=== PATIENT | female | born 1960 | race Caucasian/White ===

== ENCOUNTER 2020-09-22 | Emergency (ER) | payer OTHER, SELFPAY ==
--- NOTE | ~2020-09-22 | XR_ITS ---
EXAMINATION: XR CHEST CLINICAL INFORMATION: CVP COMPARISON: None TECHNIQUE: Frontal view of the chest was obtained. FINDINGS: No significant abnormality is noted involving the heart, lungs, mediastinum, bony thorax or soft tissues. Degenerative changes are noted in both shoulders with humeral osteophytes. XR/XR chest 1V IMPRESSION: No acute intrathoracic disease
--- NOTE | 2020-09-22 00:03 | ED.CHESTPAIN ---
HPI - Chest Pain General Chief Complaint: Chest Pain Stated Complaint: LEF SIDED CHEST PAIN/PRESSURE W/ASA & NITRO GIVEN Time Seen by Provider: 09/22/20 00:03 Source: patient Mode of arrival: ambulatory Limitations: no limitations History of Present Illness HPI narrative: patient history of asthma no known coronary artery disease had a good day today just half an hour prior to arrival while at rest noticed left-sided chest pain was coughing little bit prior to that feels hot in the chest was given nitroglycerin sublingual and 324 mg aspirin by EMS without much relief no radiation of pain no diaphoresis no nausea no vomiting 12 lead EKG done by EMT showed no acute ST elevation. Patient never had similar pain in the past no significant family history except for grandfather had SD at age of 60 Related Data Home Medications Medication Instructions Recorded Confirmed calcium carbonate 500 mg (1,250 1 tab PO DAILY 01/27/20 01/27/20 mg)-vitamin D3 200 unit tablet diphenhydramine HCl 25 mg capsule 25 mg PO Q6H PRN 01/27/20 01/27/20 loratadine 10 mg capsule 10 mg PO DAILY 01/27/20 01/27/20 multivitamin 1 tab PO DAILY 01/27/20 01/27/20 naproxen sodium 220 mg tablet 220 mg PO Q12H 01/27/20 01/27/20 Previous Rx's Medication Instructions Recorded albuterol sulfate 90 mcg/actuation 2 puff INHALATION Q4-6H PRN #8.5 g 01/27/20 aerosol inhaler fluticasone 250 mcg-salmeterol 50 1 inh INHALATION BID #60 ea 06/06/20 mcg/dose blistr powdr for inhalation montelukast 10 mg tablet 10 mg PO DAILY #90 tab 07/19/20 Allergies Allergy/AdvReac Type Severity Reaction Status Date / Time venom-wasp [WASP VENOM] Allergy Unknown HIVES, Verified 01/27/20 09:24 SWELLING Review of Systems Review of Systems: Constitutional : No Weight loss, No Fever, No Chills ENT/Mouth : No sore throat, No Rhinorrhea Eyes: No Eye Pain, No Swelling Cardiovascular : + Chest Pain, no palpitations Respiratory : No Cough, No Sputum, no shortness of breath Gastrointestinal : no Nausea, No Vomiting, No Diarrhea, No abdominal Pain, no black stools Genitourinary : No Dysuria, No Urinary Frequency Musculoskeletal : No joint pain, No Myalgias, No Joint Swelling Skin : No Skin Lesions, No rash Neuro : No Weakness, No Numbness, No Dizziness, No Headache Psych : No Anxiety/Panic, No Depression Heme/Lymph: No Bruising, No Lymphadenopathy Endocrine : No Polyuria, No Polydipsia All other systems reviewed and are negative [facility] Past Medical History Medical History Asthma GERD (gastroesophageal reflux disease) Obesity (BMI 30-39.9) Surgical History No pertinent past surgical history Family History Family History Father Lung cancer Hypertension CVD (cardiovascular disease) Mother Stroke Paternal Grandmother Hypothyroid Graves disease Maternal Uncle Colon cancer Paternal Grandfather Myocardial infarction Social History Social History Alcohol intake: current Years Smoked: smokes marijuana Advance Directives: No Advance Directives Information Provided: No Physical Exam Vital Signs: Vital Signs: Last Vital Signs Temp 98.2 F 09/22/20 00:06 Pulse 70 09/22/20 04:14 Resp 16 09/22/20 04:14 BP 115/68 09/22/20 04:14 Pulse Ox 97 09/22/20 04:14 Body Mass Index 33.2 Appearance: Alert. Oriented X3. No acute distress. Eyes: PERRLA, No Nystagmus ENT: Pharynx normal. Oral Mucosa moist Neck: Normal inspection. Neck supple. CVS: Normal heart rate and rhythm. Pulses normal. Respiratory: No respiratory distress. Equal air entry bilateral, no wheezing/rales/rhonchi Abdomen: Soft and nontender. Bowel sounds are present, no mass palpable, no CVA tenderness Skin: Skin warm and dry. Normal skin color. Normal skin turgor. Extremities: No lower extremity edema. No calf tenderness Neuro: Oriented X 3. No motor deficit. No sensory deficit.No cerebellar signs , cranial nerves II-XII intact MDM - Chest Pain MDM Narrative Medical decision making narrative: patient with chest pain with no significant risk factor no acute EKG changes 2 sets of high sensitive troponin negative. Patient relaxed and sleeping at this time without any chest pain patient advised to follow with PCP for further evaluation Lab Data Attestation: I reviewed the patient's lab results. Result diagrams: 09/22/20 00:27 09/22/20 00:27 Labs: Lab Results 09/22/20 09/22/20 09/22/20 Range/Units 00: 00:27 00:27 WBC 7.8 (4.8-10.8) X10*3/uL RBC 4.00 L (4.20-5.50) X10*6/uL Hgb 12.4 (12.0-16.0) g/dl Hct 35.7 L (37-47) % MCV 89.3 (80-98) fL MCH 31.0 (27.0-33.0) pg MCHC 34.7 (31.0-35.0) g/dl RDW 12.4 (11.0-16.0) % Plt Count 345 (160-400) X10*3/uL MPV 9.2 L (9.4-12.3) fL Immature Gran % (Auto) 0.9 H (0.0-0.4) % Neut % (Auto) 59.2 (45-73) % Lymph % (Auto) 29.2 (20-40) % [place] % (Auto) 6.9 (2-11) % Eos % (Auto) 2.8 (0-4) % Baso % (Auto) 1.0 (0-2) % Lymph # (Auto) 2.3 (1.2-4.9) X10*3/uL [place] # (Auto) 0.5 (0.1-1.2) X10*3/uL Eos # (Auto) 0.2 (0.0-0.4) X10*3/uL Baso # (Auto) 0.1 (0.0-0.2) X10*3/uL Abs Immat Gran (auto) 0.07 H (0.00-0.03) X10*3/uL Absolute Neuts (auto) 4.6 (2.0-8.3) X10*3/uL Absolute Nucleated RBC 0.000 (0.0-0.012) X10*3/uL Nucleated RBC % (auto) 0.0 (0.0-0.2) /100WBC PT 9.9 (9.9-13.0) SEC INR 0.9 (0.9-1.1) APTT 26.8 (24.1-38.0) SEC D-Dimer 208 NG/ML Sodium 138 (135-145) mmol/L Potassium 3.9 (3.3-5.1) mmol/L Chloride 107 (96-108) mmol/L Carbon Dioxide 23 (22-29) mmol/L Anion Gap 12 (12-20) BUN 16 (9-16) mg/dL Creatinine 0.83 (0.5-1.4) mg/dL Estim Creat Clear Calc 76.2 Estimated GFR > 60 Random Glucose 100 (60-115) mg/dL Calcium 9.6 (8.4-10.2) mg/dL Troponin I High Sens (<3.5-17.0) ng/L 09/22/20 09/22/20 Range/Units 00:27 04:14 WBC (4.8-10.8) X10*3/uL RBC (4.20-5.50) X10*6/uL Hgb (12.0-16.0) g/dl Hct (37-47) % MCV (80-98) fL MCH (27.0-33.0) pg MCHC (31.0-35.0) g/dl RDW (11.0-16.0) % Plt Count (160-400) X10*3/uL MPV (9.4-12.3) fL Immature Gran % (Auto) (0.0-0.4) % Neut % (Auto) (45-73) % Lymph % (Auto) (20-40) % [place] % (Auto) (2-11) % Eos % (Auto) (0-4) % Baso % (Auto) (0-2) % Lymph # (Auto) (1.2-4.9) X10*3/uL [place] # (Auto) (0.1-1.2) X10*3/uL Eos # (Auto) (0.0-0.4) X10*3/uL Baso # (Auto) (0.0-0.2) X10*3/uL Abs Immat Gran (auto) (0.00-0.03) X10*3/uL Absolute Neuts (auto) (2.0-8.3) X10*3/uL Absolute Nucleated RBC (0.0-0.012) X10*3/uL Nucleated RBC % (auto) (0.0-0.2) /100WBC PT (9.9-13.0) SEC INR (0.9-1.1) APTT (24.1-38.0) SEC D-Dimer NG/ML Sodium (135-145) mmol/L Potassium (3.3-5.1) mmol/L Chloride (96-108) mmol/L Carbon Dioxide (22-29) mmol/L Anion Gap (12-20) BUN (9-16) mg/dL Creatinine (0.5-1.4) mg/dL Estim Creat Clear Calc Estimated GFR Random Glucose (60-115) mg/dL Calcium (8.4-10.2) mg/dL Troponin I High Sens < 3.5 < 3.5 (<3.5-17.0) ng/L ECG Data ECG #1: Attestation: I personally reviewed and interpreted this ECG as follows: Interpretation: normal sinus rhythm normal intervals normal axis flat ST segments inferolateral leads without reciprocal changes no acute ischemia Discharge Plan Discharge Prescriptions: No Action fluticasone propion-salmeterol [Advair Diskus] 250-50 mcg/dose blister with device 1 inh inhalation BID Qty: 60 RF: 11 montelukast [Singulair] 10 mg tablet 10 mg PO DAILY Qty: 90 RF: 3 calcium carbonate-vitamin D3 [Calcium 500 + D] 500 mg(1,250mg) -200 unit tablet 1 tab PO DAILY RF: 0 multivitamin Tablet 1 tab PO DAILY RF: 0 loratadine 10 mg capsule 10 mg PO DAILY RF: 0 diphenhydramine HCl [Benadryl] 25 mg capsule 25 mg PO Q6H PRNRF: 0 naproxen sodium [Aleve] 220 mg tablet 220 mg PO Q12H RF: 0 albuterol sulfate [ProAir HFA] 90 mcg/actuation HFA aerosol inhaler 2 puff inhalation Q4-6H PRN (Reason: bronchospasm) Qty: 8.5 RF: 0
[2020-09-22 00:06] VITALS: BP 155/80; BP 161/81; PULSE 100; PULSE 87; RESP 16; TEMP 36.8; O2SAT 100; O2SAT 97; BMI 33.2
--- NOTE | 2020-09-22 00:09 | ECG_ITS ---
Test Reason : CP Blood Pressure : / mmHG Vent. Rate : 085 BPM Atrial Rate : 085 BPM P-R Int : 140 ms QRS Dur : 088 ms QT Int : 370 ms P-R-T Axes : 069 042 053 degrees QTc Int : 440 ms Normal sinus rhythm Possible Left atrial enlargement Borderline ECG No previous ECGs available Referred By: Jesus Baires Electronically Signed By:ALIZA AQUINO
[2020-09-22 00:34] LABS: Basophils Absolute Auto 0.1 X10*3/uL (0.0-0.2); Eosinophils Absolute Auto 0.2 X10*3/uL (0.0-0.4); Eosinophils Percent Auto 2.8 % (0-4); Hematocrit 35.7 % (37-47); Hemoglobin 12.4 g/dl (12.0-16.0); Imm Gran Abs Auto 0.07 X10*3/uL (0.00-0.03); Imm Gran Pct Auto 0.9 % (0.0-0.4); Lymphocytes Absolute Auto 2.3 X10*3/uL (1.2-4.9); Lymphocytes Percent Auto 29.2 % (20-40); Mean Corpuscular HGB Conc 34.7 g/dl (31.0-35.0); Mean Corpuscular Volume 89.3 fL (80-98); Mean Platelet Volume 9.2 fL (9.4-12.3); Monocytes Absolute Auto 0.5 X10*3/uL (0.1-1.2); Monocytes Percent Auto 6.9 % (2-11); Neutrophils Absolute Auto 4.6 X10*3/uL (2.0-8.3); Neutrophils Percent Auto 59.2 % (45-73); Platelet Count 345 X10*3/uL (160-400); Red Cell Distribution Width 12.4 % (11.0-16.0); White Blood Count 7.8 X10*3/uL (4.8-10.8)
[2020-09-22 00:35] LABS: MANUAL DIFF FLAG NO
[2020-09-22 00:38] VITALS: BP 135/69; PULSE 80; RESP 21; O2SAT 97
[2020-09-22] MEDS: Nitroglycerin 2 % Oint 1 GM Packet 1 INCH TRANSDERMA (00:39)
[2020-09-22 00:40] LABS: INTERNATIONAL NORM RATIO 0.9 (0.9-1.1); Prothrombin Time 9.9 SEC (9.9-13.0)
[2020-09-22 00:43] LABS: D Dimer 208 NG/ML; Partial Thromboplastin Time 26.8 SEC (24.1-38.0)
[2020-09-22 00:56] LABS: Anion Gap 12 (12-20); Blood Urea Nitrogen 16 mg/dL (9-16); Calcium 9.6 mg/dL (8.4-10.2); Carbon Dioxide 23 mmol/L (22-29); Chloride 107 mmol/L (96-108); Creatinine Clr Calc Pharmacy 76.2; Estimated Glomerular Filt Rate > 60; Glucose Random 100 mg/dL (60-115); Potassium 3.9 mmol/L (3.3-5.1); Sodium 138 mmol/L (135-145)
[2020-09-22 01:01] LABS: Troponin-I High Sensitivity < 3.5 ng/L (<3.5-17.0)
--- NOTE | 2020-09-22 02:44 | PC.NURSE ---
pt ambulatory to bathroom with steady gait. pt able to rest and has been sleeping for past 20 minutes. pt awaiting repeat troponin.
[2020-09-22 04:14] VITALS: BP 115/68; PULSE 70; RESP 16; O2SAT 97
[2020-09-22 04:43] LABS: Troponin-I High Sensitivity < 3.5 ng/L (<3.5-17.0)
--- NOTE | 2020-09-22 07:06 | PC.NURSE ---
pt ambulatory to waiting room with steady gait, able to dress herself without difficulty. pt given apple juice while waiting for hospital shuttle.
== END 2020-09-22 06:45 | disposition home or self-care (01) ==
PROVIDERS: Emergency Provider Internal Medicine; PCP Internal Medicine
DX: R07.9 Chest pain, unspecified (principal); J45.909 Unspecified asthma, uncomplicated; Z79.899 Other long term (current) drug therapy
CPT/HCPCS: 36415; 71045; 80048; 84484; 85025; 85379; 85610; 85730; 93005; 99284; 99285

== ENCOUNTER → 2020-11-17 14:05 | Outpatient (BNVA) | payer OTHER, SELFPAY | PROVIDERS: PCP Internal Medicine; Referring Provider Internal Medicine; Visit Provider Internal Medicine Cardiovascular Disease ==

== ENCOUNTER 2021-07-17 07:57 | Outpatient (REF) | payer OTHER, SELFPAY ==
--- NOTE | ~2021-07-17 | MM_ITS ---
EXAMINATION: MM SCREENING DIGITAL BREAST TOMOSYNTHESIS, BILATERAL CLINICAL INFORMATION: Screening. Asymptomatic. The lifetime risk of breast cancer based on the Tyrer-Cuzick Model is 9%. COMPARISON: Mammography: 11/27/2019, 05/02/2018, 04/22/2017 TECHNIQUE: Digital breast tomosynthesis is performed in both the craniocaudal and mediolateral oblique views along with computer-aided detection (CAD). Synthesized 2D images are generated from the tomosynthesis. FINDINGS: There are scattered areas of fibroglandular density (ACR BI-RADS breast composition Category b). There are no significant masses, abnormal calcifications, or other abnormalities. Parenchymal pattern is similar to prior studies. There is no developing density or architectural abnormality. The axilla and skin contours are unremarkable. No significant changes. MM/MM tomosynthesis screening BI IMPRESSION: No mammographic evidence of malignancy. ASSESSMENT: BI-RADS 1: Negative RECOMMENDATION: Routine annual mammography screening. This patient's information was entered into a reminder system with a target due date for their next mammogram.
== END 2021-07-17 07:58 | disposition home or self-care (01) ==
LOC: HO.MAMMO 07:57
PROVIDERS: Visit Provider Internal Medicine
DX: Z12.31 Encounter for screening mammogram for malignant neoplasm of breast (principal)
CPT/HCPCS: 77063; 77067

== ENCOUNTER 2022-03-30 22:46 | Emergency (ER) | payer OTHER, SELFPAY ==
[2022-03-30 22:48] VITALS: BP 170/67; PULSE 104; RESP 20; TEMP 36.3; O2SAT 100; BMI 30.9
--- NOTE | 2022-03-30 22:51 | ECG_ITS ---
Test Reason : CHEST PAIN Blood Pressure : / mmHG Vent. Rate : 105 BPM Atrial Rate : 105 BPM P-R Int : 144 ms QRS Dur : 080 ms QT Int : 332 ms P-R-T Axes : 062 028 048 degrees QTc Int : 438 ms Sinus tachycardia Possible Left atrial enlargement Nonspecific ST abnormality Abnormal ECG When compared with ECG of 22-SEP-2020 00:14, No significant change was found Referred By: Generic ED Physician Electronically Signed By:Onel Alves
--- OUTSIDE RECORDS SUMMARY | 2022-03-30 23:25 | XMS_ITS | Encounter Summary ---
:1960 Author Reason for Visit Congestion congestion, sore throat, cough x 5 days, low grade fever. Would like Covid and Flu test. Assessment and Plan 1. COVID-19 ? rapid flu (A+B) ? rapid SARS CoV 2 Ag, QL IA, respirato ry specimen ? coronavirus (covid-19): care instruct ions 2. Acute upper respiratory infection ? upper respiratory infection (cold): c are instructions Discussion Note: None recorded. Plan of Care Reminders Provider Appointments None recorded. ? ? Lab Rapid Flu (A+B) [facility] ? Rapid SARS CoV 2 Ag, QL IA, 02/16/2022 21 [facility] Res[facility] Specimen Referral None recorded. ? ? Procedures None recorded. ? ? Surgeries None recorded. ? ? Imaging None recorded. ? ? Medications Name Start Date ? ? fluticasone 250 mcg-salmeterol 50 mcg/dose blistr powd r for inhalation ? loratadine ? montelukast 10 mg tablet ? Medications Administered None recorded. Vitals Height Weight BMI Blood Pressure 5 ft 4 in 180 lbs 30.9 kg/m2 147/84 mm[Hg] Results Lab Results Date Name Specimen Result Interpretation Description Value Range Status Address ? 02/16/2022 Rapid SARS ? Result positive ? ? [facility] CoV 2 Ag, QL COVID [address] [place], [place], Antigen [place] Respiratory Specimen 02/16/2022 Rapid Flu ? Result negative ? ? [facility]: (A+B) Influenza a [address] [place], [place] ? ? ? Result negative ? ? [facility] Influenza B [address] [facility] [place], [place] Allergies Code Code System Name Reaction Severity Onset NKDA ? ? ? Problems Name Status Onset Date Source ? Asthma Active 02/16/2022 ? Procedures None recorded. Vaccine List None recorded. Social History Tobacco Smoking Status Never Smoker Do you or have you ever used any other forms of tobacco or n icotine? N Have you recently traveled abroad? N Do you use any illicit or recreational drugs? N What is your heat source? Electric Have you had direct contact, or contact during intimacy, wit h N monkeypox rash, scabs, or body fluids from a person with mon keypox? What is your water source? [place] Family History Relation Problem Onset Age of Age Notes Father No current problems or (No Information) N/A ( No Notes) disability Mother No current problems or (No Information) N/A ( No Notes) disability Functional Status Unknown. Past Encounters Encounter Date Diagnosis Provider 02/16/2022 Covid-19; Acute Upper Respiratory Mame Shipley PA: [address] [facility], [place] [address], Ph. History of Present Illness ? Congestion Reported By: Patient Notes: Lynda is a 61 yo F with PMH asthma here for evaluation of congestion, sore throat, cough and low g rade fevers onset 5 days. No SOB, CP, wheezing. Notes she was expo sed to sick persons on but none of them have tested. Asking for flu/covid testing here today. Review of Systems ? UC General Adult ROS Reported By: Patient Constitutional: Constitutional: no night swe ats, no significant weight loss, fever ENMT: Ears: no difficulty hearing, no ear pain. Nose: NO loss of taste/smell, nose/sinus prob lems, nasal congestion/discharge. Mouth/Throat: no mouth ulcer s, No hoarseness, sore throat Cardiovascular: Cardiovascular: no chest sabine n, no palpitations, no arm pain on exertion, no shortness of br eath when walking, no shortness of breath when lying down Respiratory: Respiratory: no wheezing, no shortness of breath, no coughing up blood, no congestion in the chest, Not coughing up sputum, cough productive Musculoskeletal: Musculoskeletal: no muscle a ches, no muscle weakness, no arthralgias/joint pain, no b ack pain, no swelling in the extremities Physical Exam ? General Adult Exam Both Reported By: Patient Constitutional: General Appearance: healthy- appearing, well-nourished, well-developed Eyes: Lids and Conjunctivae: non-i njected, no discharge, no pallor. Pupils: PERRLA. Corneas: christophe ssly intact. EOM: extraocular movement intact ENMT: Ears: no lesions on external ear, EACs clear, TMs clear. Hearing: normal. Nose: no le sions on external nose, nares patent, no septal deviation, no sinus tenderness, nasal discharge--rhinorrhea. Oroph arynx: moist mucous membranes, no exudates, tonsils not enlarg ed, erythema Neck: Neck: supple, non tender Lungs: Respiratory effort: no dyspn ea, nonlabored. Percussion: normal resonance, no dullness. Ausc ultation: breath sounds normal Cardiovascular System: Apical Impulse: not displace d. Heart Auscultation: regular rate and rhythm, normal S1, normal S2, no murmurs, no rubs, no gallops. Neck vessels: no ca rotid bruits. Peripheral pulses normal throughout Neurologic: Gait: normal gait. Cranial N erves: grossly intact, no facial droop, eyebrow raise symmetr ical. Sensation: grossly intact Skin: Inspection and palpation: no rash
--- OUTSIDE RECORDS SUMMARY | 2022-03-30 23:25 | XMS_ITS ---
:1960 Author Care Team Providers Name Role Phone Tomasz Mame Primary Care Provider Unavailable Allergies Code Code System Name Reaction Severity Status Onset NKDA ? Medications Name Status Start Date Stop Date ? ? fluticasone 250 mcg-salmeterol 50 mcg/dose blistr powdr for Acti ve ? Not available inhalation loratadine Active ? Not available montelukast 10 mg tablet Active ? Not miki ilable Problems Name Status Onset Date Source ? Asthma Active 02/16/2022 ? Procedures None recorded. Results Lab Results Date Name Specimen Result Interpretation Description Value Range Status Address ? 02/16/2022 Rapid SARS ? Result positive ? ? [facility] CoV 2 Ag, QL COVID [address] [facility] [place], [place], Antigen [place] Respiratory Specimen 02/16/2022 Rapid Flu ? Result negative ? ? [facility]: (A+B) Influenza a [address] [place] ? ? ? Result negative ? ? [facility]: Influenza B [address] [place] [address] Past Encounters Encounter Date Diagnosis Provider 02/16/2022 Covid-19; Acute Upper Respiratory Mame Shipley, PA: [address] [place] [address], Ph. Social History Tobacco Smoking Status Never Smoker Vaccine List None recorded. Plan of Care Reminders Provider Appointments None recorded. ? ? Lab None recorded. ? ? Referral None recorded. ? ? Procedures None recorded. ? ? Surgeries None recorded. ? ? Imaging None recorded. ? ? Vitals Height Weight BMI Blood Pressure 5 ft 4 in 180 lbs 30.9 kg/m2 147/84 mm[Hg]
--- NOTE | 2022-03-30 23:58 | ED_ITS ---
HPI - Chest Pain General Chief Complaint: Chest Pain Stated Complaint: faint, Chest pain Time Seen by Provider: 03/30/22 23:17 Source: patient Mode of arrival: ambulatory Limitations: no limitations History of Present Illness HPI narrative: Patient comes to the emergency room complaining of approximately 1-1/2 hours of chest pain radiating towards the right side of the neck. Patient also complaining of palpitations. Patient denies shortness of breath. Denies nausea vomiting diarrhea. Patient states that for the last week she has occasionally had lightheadedness with standing Related Data Home Medications Medication Instructions Recorded Confirmed calcium carbonate 500 mg-vitamin 1 tab PO DAILY 01/27/20 01/31/22 D3 5 mcg (200 unit) tablet (Calcium 500 + D) loratadine 10 mg capsule 10 mg PO DAILY 01/27/20 01/31/22 multivitamin 1 tab PO DAILY 01/27/20 01/31/22 naproxen sodium 220 mg tablet 220 mg PO Q12H 01/27/20 01/31/22 (Aleve) Previous Rx's Medication Instructions Recorded fluticasone 250 mcg-salmeterol 50 1 ea PO BID #180 ea 05/15/21 mcg/dose blistr powdr for inhalation montelukast 10 mg tablet 10 mg PO DAILY #90 tabs 06/27/21 (Singulair) albuterol sulfate 90 mcg/actuation 2 puff PO Q4-6H PRN for muscle 03/28/22 aerosol inhaler spasm #8.5 grams Allergies Allergy/AdvReac Type Severity Reaction Status Date / Time venom-wasp [WASP VENOM] Allergy Unknown HIVES, Verified 01/31/22 11:32 SWELLING Review of Systems Review of Systems: Constitutional : No Weight loss, No Fever, No Chills, No Night Sweats, No Fatigue, No Malaise ENT/Mouth : No Hearing loss, No Ear Pain, No Nasal Congestion, No Sinus Pain, No Hoarseness, No sore throat, No Rhinorrhea, No Swallowing Difficulty Eyes: No Eye Pain, No Swelling, No Redness, No Foreign Body, No Discharge, No Vision Changes Cardiovascular : Complaining of chest pressure bilaterally, radiating to the right side of the chest, no orthopnea, complaining of lightheadedness with standing Respiratory : No Cough, No Sputum, No Wheezing, No Smoke Exposure, No Dyspnea Gastrointestinal : No Nausea, No Vomiting, No Diarrhea, No Constipation, No abdominal Pain, No Hematochezia, No Melena Genitourinary : no irregular bleeding, No Dysuria, No Urinary Frequency, No Hematuria, No Urinary Incontinence, No Urgency, No Flank Pain, No Urinary Flow Changes, No Hesitancy Musculoskeletal : No joint pain, No Myalgias, No Joint Swelling Skin : No Skin Lesions, No rash Neuro : No Weakness, No Numbness, No Paresthesias, No Loss of Consciousness, No Dizziness, No Headache Psych : No Anxiety/Panic, No Depression, No SI/HI/AH/VH, No Social Issues, Heme/Lymph: No Bruising, No Bleeding,No Lymphadenopathy Endocrine : No Polyuria, No Polydipsia, No Temperature Intolerance [facility] Past Medical History Medical History Asthma GERD (gastroesophageal reflux disease) Obesity (BMI 30-39.9) Surgical History No pertinent past surgical history Family History Family History (Updated 01/31/22 @ 11:49 by Fadi Barcenas MD) Father Lung cancer Hypertension CVD (cardiovascular disease) Mother Stroke Colon cancer Paternal Grandmother Hypothyroid Graves disease Maternal Uncle Colon cancer Paternal Grandfather Myocardial infarction Sister Graves disease Brother Stroke Social History Social History (Updated 01/31/22 @ 11:50 by Fadi Barcenas MD) Housing: House Alcohol intake: current Alcohol intake frequency: a few times a week Patient Tobacco Use Status: Former Tobacco user Tobacco use type: Cigarette Years Smoked: smokes marijuana, quit 2009 smoking cigarette Smoked in Last 30 Days: No e-Cigarette/Vaping Use: Never Used Second Hand Smoke Exposure: No Use of substances other than those prescribed or required for medical reasons: Yes Substance Use Type: Marijuana Advance Directives: No Advance Directives Information Provided: Yes Patient : No Current occupational status: employed Cognitive needs: No Hearing needs: No Vision needs: Yes Physical Exam Vital Signs: Vital Signs: Last Vital Signs Temp 97.9 F 03/31/22 00:49 Pulse 86 03/31/22 00:49 Resp 15 03/31/22 00:49 BP 134/63 03/31/22 00:49 Pulse Ox 97 03/31/22 00:49 O2 Del Method 03/31/22 00:49 BMI result Body Mass Index 30.9 Const: Other: Appearance: Alert. Oriented X3. No acute distress. Eyes: Pupils equal, round and reactive to light. ENT: Pharynx normal. Neck: Normal inspection. Neck supple. No lymph nodes noted. No crepitus CVS: Normal heart rate and rhythm. Pulses normal. Normal S1 and S2 Respiratory: No respiratory distress. Breath sounds normal. No Wheezing. No rales Abdomen: Soft and nontender. No rigidity. No distention. Skin: Skin warm and dry. Normal skin color. Normal skin turgor. Extremities: No lower extremity edema. No Lacerations. No Rash Neuro: Oriented X 3. No motor deficit. No sensory deficit. Moving all extremities. No slurred speech. CN 2 through 12 grossly intact Psych: calm, cooperative, anxious Course Course Course Narrative: Patient seems a bit anxious. No reproducible chest pain. Chest x-ray does not show any acute abnormalities. Troponin 1. Negative. EKG: My interpretation sinus tachycardia, 100 105, no ST segment depression or elevation, no T-wave inversion, QTC 438 Repeat troponin 2. Will be done at 3 in the morning. Sign-out given to Dr. Anthony Medical Decision Making Differential Diagnosis Differential Diagnoses: The differential diagnosis associated with the presentation includes (ACS, anxiety, costochondritis) Lab Data MDM Lab Attestation statement: I reviewed the patient's lab results. 03/30/22 23:55 03/30/22 23:55 Labs: Lab Results 03/30/22 03/30/22 03/30/22 Range/Units 23:55 23:55 23:55 WBC 9.6 (4.8-10.8) X10*3/uL RBC 3.95 L (4.20-5.50) X10*6/uL Hgb 11.9 L (12.0-16.0) g/dl Hct 35.3 L (37.0-47.0) % MCV 89.4 (80.0-98.0) fL MCH 30.1 (27.0-33.0) pg MCHC 33.7 (31.0-35.0) g/dl RDW 12.6 (11.0-16.0) % Plt Count 378 (160-400) X10*3/uL MPV 9.2 L (9.4-12.3) fL Immature Gran % (Auto) 0.4 (0.0-0.4) % Neut % (Auto) 72.2 (45-73) % Lymph % (Auto) 18.3 L (20-40) % [place] % (Auto) 6.7 (2-11) % Eos % (Auto) 1.8 (0-4) % Baso % (Auto) 0.6 (0-2) % Lymph # (Auto) 1.8 (1.2-4.9) X10*3/uL [place] # (Auto) 0.6 (0.1-1.2) X10*3/uL Eos # (Auto) 0.2 (0.0-0.4) X10*3/uL Baso # (Auto) 0.1 (0.0-0.2) X10*3/uL Abs Immat Gran (auto) 0.04 H (0.00-0.03) X10*3/uL Absolute Neuts (auto) 6.9 (2.0-8.3) x10*3/uL Absolute Nucleated RBC 0.000 (0.0-0.012) X10*3/uL Nucleated RBC % (auto) 0.0 (0.0-0.2) /100WBC Sodium 138 (135-145) mmol/L Potassium 4.0 (3.3-5.1) mmol/L Chloride 107 (96-108) mmol/L Carbon Dioxide 23 (22-29) mmol/L Anion Gap 12 (12-20) BUN 22 H (9-16) mg/dL Creatinine 0.84 (0.5-1.4) mg/dL Estim Creat Clear Calc 74.5 Estimated GFR > 60 Random Glucose 121 H (60-115) mg/dL Calcium 9.7 (8.4-10.2) mg/dL Total Bilirubin 0.8 (0.0-1.0) mg/dL AST 20 (5-31) U/L ALT 20 (0-31) U/L Alkaline Phosphatase 71 (39-117) U/L Troponin I High Sens (<3.5-17.0) ng/L Total Protein 6.3 L (6.5-8.0) g/dL Albumin 3.8 (3.5-5.0) g/dL COVID-19 (PIO) Negative (Negative) COVID-19 Clin Com See Note 03/30/22 Range/Units 23:55 WBC (4.8-10.8) X10*3/uL RBC (4.20-5.50) X10*6/uL Hgb (12.0-16.0) g/dl Hct (37.0-47.0) % MCV (80.0-98.0) fL MCH (27.0-33.0) pg MCHC (31.0-35.0) g/dl RDW (11.0-16.0) % Plt Count (160-400) X10*3/uL MPV (9.4-12.3) fL Immature Gran % (Auto) (0.0-0.4) % Neut % (Auto) (45-73) % Lymph % (Auto) (20-40) % [place]wall % (Auto) (2-11) % Eos % (Auto) (0-4) % Baso % (Auto) (0-2) % Lymph # (Auto) (1.2-4.9) X10*3/uL [place] # (Auto) (0.1-1.2) X10*3/uL Eos # (Auto) (0.0-0.4) X10*3/uL Baso # (Auto) (0.0-0.2) X10*3/uL Abs Immat Gran (auto) (0.00-0.03) X10*3/uL Absolute Neuts (auto) (2.0-8.3) x10*3/uL Absolute Nucleated RBC (0.0-0.012) X10*3/uL Nucleated RBC % (auto) (0.0-0.2) /100WBC Sodium (135-145) mmol/L Potassium (3.3-5.1) mmol/L Chloride (96-108) mmol/L Carbon Dioxide (22-29) mmol/L Anion Gap (12-20) BUN (9-16) mg/dL Creatinine (0.5-1.4) mg/dL Estim Creat Clear Calc Estimated GFR Random Glucose (60-115) mg/dL Calcium (8.4-10.2) mg/dL Total Bilirubin (0.0-1.0) mg/dL AST (5-31) U/L ALT (0-31) U/L Alkaline Phosphatase (39-117) U/L Troponin I High Sens < 3.5 (<3.5-17.0) ng/L Total Protein (6.5-8.0) g/dL Albumin (3.5-5.0) g/dL COVID-19 (PIO) (Negative) COVID-19 Clin Com Discharge Plan Discharge Clinical Impression: Chest pain Patient Disposition: Still a Patient Instructions: Chest Pain (ED) Additional Instructions: Please follow-up with your primary care physician tomorrow. If you have any worsening or new symptoms, please return to the emergency room or call 911 Prescriptions: No Action fluticasone propion-salmeterol 250-50 mcg/dose blister with device 1 ea PO BID Qty: 180 3RF montelukast [Singulair] 10 mg tablet 10 mg PO DAILY Qty: 90 3RF albuterol sulfate 90 mcg/actuation HFA aerosol inhaler 2 puff PO Q4-6H PRN (Reason: for muscle spasm) Qty: 8.5 0RF calcium carbonate-vitamin D3 [Calcium 500 + D] 500 mg(1,250mg) -200 unit tablet 1 tab PO DAILY multivitamin Tablet 1 tab PO DAILY loratadine 10 mg capsule 10 mg PO DAILY naproxen sodium [Aleve] 220 mg tablet 220 mg PO Q12H
[2022-03-31] LABS: MANUAL DIFF FLAG NO
[2022-03-31 00:03] LABS: Basophils Absolute Auto 0.1 X10*3/uL (0.0-0.2); Basophils Percent Auto 0.6 % (0-2); Eosinophils Absolute Auto 0.2 X10*3/uL (0.0-0.4); Eosinophils Percent Auto 1.8 % (0-4); Hematocrit 35.3 % (37.0-47.0); Hemoglobin 11.9 g/dl (12.0-16.0); Imm Gran Abs Auto 0.04 X10*3/uL (0.00-0.03); Imm Gran Pct Auto 0.4 % (0.0-0.4); Lymphocytes Absolute Auto 1.8 X10*3/uL (1.2-4.9); Lymphocytes Percent Auto 18.3 % (20-40); Mean Corpuscular HGB Conc 33.7 g/dl (31.0-35.0); Mean Corpuscular Hemoglobin 30.1 pg (27.0-33.0); Mean Corpuscular Volume 89.4 fL (80.0-98.0); Mean Platelet Volume 9.2 fL (9.4-12.3); Monocytes Absolute Auto 0.6 X10*3/uL (0.1-1.2); Monocytes Percent Auto 6.7 % (2-11); Neutrophils Absolute Auto 6.9 x10*3/uL (2.0-8.3); Neutrophils Percent Auto 72.2 % (45-73); Platelet Count 378 X10*3/uL (160-400); Red Blood Count 3.95 X10*6/uL (4.20-5.50); Red Cell Distribution Width 12.6 % (11.0-16.0); White Blood Count 9.6 X10*3/uL (4.8-10.8)
[2022-03-31 00:19] LABS: COVID-19 Test Negative (Negative); IDNOW Serial# 16C4AD1C
[2022-03-31 00:21] VITALS: BP 147/61; PULSE 91
[2022-03-31 00:22] VITALS: BP 165/76; PULSE 94
[2022-03-31 00:24] VITALS: BP 182/76; PULSE 94
[2022-03-31 00:34] LABS: Alanine Aminotransferase 20 U/L (0-31); Albumin Level 3.8 g/dL (3.5-5.0); Alkaline Phosphatase 71 U/L (39-117); Anion Gap 12 (12-20); Aspartate Amino Transferase 20 U/L (5-31); Bilirubin Total 0.8 mg/dL (0.0-1.0); Blood Urea Nitrogen 22 mg/dL (9-16); Calcium 9.7 mg/dL (8.4-10.2); Carbon Dioxide 23 mmol/L (22-29); Chloride 107 mmol/L (96-108); Creatinine Clr Calc Pharmacy 74.5; Estimated Glomerular Filt Rate > 60; Glucose Random 121 mg/dL (60-115); Sodium 138 mmol/L (135-145); Total Protein 6.3 g/dL (6.5-8.0)
[2022-03-31 00:49] VITALS: BP 134/63; PULSE 86; RESP 15; TEMP 36.6; O2SAT 97
[2022-03-31 01:01] LABS: Troponin-I High Sensitivity < 3.5 ng/L (<3.5-17.0)
--- NOTE | 2022-03-31 02:03 | PC.NURSE ---
Pt. resting in bed with daughter at bedside. Orthostatics were negative. Will repeat troponin at 3am.
[2022-03-31 03:50] LABS: Troponin-I High Sensitivity < 3.5 ng/L (<3.5-17.0)
[2022-03-31 04:20] VITALS: BP 120/65; PULSE 72; RESP 14; TEMP 36.4; O2SAT 95
[2022-03-31 05:24] VITALS: PULSE 75
== END 2022-03-31 06:47 | disposition home or self-care (01) ==
PROVIDERS: Emergency Provider Emergency Medicine; PCP Internal Medicine
DX: R07.89 Other chest pain (principal); M54.2 Cervicalgia; F17.210 Nicotine dependence, cigarettes, uncomplicated; Z20.828 Contact with and (suspected) exposure to other viral communicable diseases; Z20.822 Contact with and (suspected) exposure to COVID-19; Z79.899 Other long term (current) drug therapy; Z71.6 Tobacco abuse counseling
CPT/HCPCS: 36415; 80053; 84484; 85025; 87635; 93005; 99283; 99285

== ENCOUNTER 2022-07-23 07:58 | Outpatient (REF) | payer OTHER, SELFPAY ==
--- NOTE | ~2022-07-23 | MM_ITS ---
EXAMINATION: MM SCREENING DIGITAL BREAST TOMOSYNTHESIS, BILATERAL CLINICAL INFORMATION: Screening. Asymptomatic. The lifetime risk of breast cancer based on the Tyrer-Cuzick Model is 9%. COMPARISON: Mammography: 07/17/2021, 11/27/2019, 05/02/2018 TECHNIQUE: Digital breast tomosynthesis is performed in both the craniocaudal and mediolateral oblique views along with computer-aided detection (CAD). Synthesized 2D images are generated from the tomosynthesis. FINDINGS: There are scattered areas of fibroglandular density (ACR BI-RADS breast composition Category b). There are no significant masses, abnormal calcifications, or other abnormalities. No architectural abnormality or developing density or significant change from prior studies. The axilla and skin contours are unremarkable. MM/MM tomosynthesis screening BI IMPRESSION: No mammographic evidence of malignancy. ASSESSMENT: BI-RADS 1: Negative RECOMMENDATION: Routine annual mammography screening. This patient's information was entered into a reminder system with a target due date for their next mammogram.
== END 2022-07-23 07:59 | disposition home or self-care (01) ==
LOC: HO.MAMMO 07:58
PROVIDERS: Visit Provider Internal Medicine
DX: Z12.31 Encounter for screening mammogram for malignant neoplasm of breast (principal)
CPT/HCPCS: 77063; 77067

== ENCOUNTER 2023-02-01 08:33 | Outpatient (AMB) | payer OTHER, SELFPAY ==
[2023-02-01 08:36] VITALS: BP 140/82; PULSE 74; O2SAT 98; BMI 31.9
--- NOTE | 2023-02-01 08:36 | A.OFFPC_ITS ---
Vital Signs 02/01/23 08:36 Height 5 ft 3 in Weight 180 lb BMI 31.9 BP 140/82 H Blood Pressure Location Lt brachial Position Sitting Pulse 74 Pulse Source Pulse Oximeter Pulse Oximetry (%) 98 Oxygen Delivery Method Room Air Intake Visit Reasons: physical Allergies venom-wasp [WASP VENOM] Allergy (Unknown, Verified 02/01/23 08:36) HIVES, SWELLING Medication List - Last Reconciled 02/01/23 by Fadi Barcenas MD albuterol sulfate 90 mcg/actuation 2 puffs PO Q4-6H PRN calcium carbonate-vitamin D3 500 mg-5 mcg (200 unit) (Calcium 500 + D) 1 tab PO DAILY fluticasone propion-salmeterol 250-50 mcg/dose 1 ea PO BID loratadine 10 mg PO DAILY montelukast (Singulair) 10 mg PO DAILY multivitamin 1 tab PO DAILY Tobacco use date assessed: 02/01/23 Dental Screening Dental Screen Date: 02/01/23 Did you have a dental visit in the last 12 months?: No Did you have a dental problem in the last 6 months where you did not have access to dental care?: No Was dental information given to patient?: Patient has dentist HPI physical HPI Details 62-year-old obese female with GERD and a sthma coming in for physical exam. Last seen in January 2022. Patient's colonoscopy is up-to-date November 2024 years and mammogram. Patient had chest pains and palpitations in March 2022. Workup was negative. [facility] Medical History Asthma GERD (gastroesophageal reflux disease) Obesity (BMI 30-39.9) Surgical History No pertinent past surgical history Family History (Updated 02/01/23 @ 08:38 by Trudy Carrasco CMA) Father Lung cancer Hypertension CVD (cardiovascular disease) Mother Stroke Colon cancer Paternal Grandmother Hypothyroid Graves disease Maternal Uncle Colon cancer Paternal Grandfather Myocardial infarction Sister Graves disease Brother Stroke Social History (Updated 02/01/23 @ 09:04 by Fadi Barcenas MD) Housing: House Alcohol intake: current Alcohol intake frequency: a few times a week Patient Tobacco Use Status: Former Tobacco user Tobacco use type: Cigarette Years Smoked: smokes marijuana, quit 2009 smoking cigarette e-Cigarette/Vaping Use: Never Used Second Hand Smoke Exposure: No Substance Use Type: Marijuana Current occupational status: employed Cognitive needs: No Hearing needs: No Vision needs: Yes Questionnaire PHQ-9 Over the last 2 weeks, how often have you been bothered by any of the following problems? 1. Little interest or pleasure in doing things: not at all 2. Feeling down, depressed, or hopeless: not at all 3. Trouble falling or staying asleep, or sleeping too much: not at all 4. Feeling tired or having little energy: not at all 5. Poor appetite or overeating: not at all 6. Feeling bad about yourself - or that you are a failure or have let yourself or your family down: not at all 7. Trouble concentrating on things, such as reading the newspaper or watching television: not at all 8. Moving or speaking so slowly that other people could have noticed. Or the opposite - being so fidgety or restless that you have been moving around a lot more than usual: not at all 9. Thoughts that you would be better off or of hurting yourself in some way: not at all Total score: 0 Depression Screening Interpretation: Negative Depression Screening Done: Yes Source: Developed by Drs. Alejandro Posey, Yen Allison, Glynn Chen and colleagues, with an educational loyd from [employer]. Thrive Questionnaire Date Thrive assessed: 02/01/23 I am a: Patient What is your living situation today?: I have a steady place to live Within the past 12 months, did the food you bought not last and you didn't have the money to get more?: Never true Within the past 12 months, did you worry whether your food would run out before you got money to buy more?: Never true Do you have trouble paying for medicines?: No Do you have trouble getting transportation to medical appointments?: No Do you have trouble paying your heating and electricity bill?: No Do you have trouble taking care of your child, family member or friend?: No Do you have trouble with day-to-day activities such as bathing, preparing meals, shopping, managing finances, etc.?: No Are you currently unemployed and looking for a job?: No Are you interested in more education?: No Currently or been in a relationship where the following occur: no concerns reported AUDIT C Alcohol Use Questionnaire (AUDIT-C) 1. How often do you have a drink containing alcohol?: 2-3 times a week 2. How many drinks containing alcohol do you have on a typical day when you are drinking?: 1 or 2 3. How often do you have six or more drinks on one occasion?: Never Total Score: 3 MIGUEL-7 AMB Questionnaire MIGUEL-7 Date MIGUEL - 7 assessed: 02/01/23 Feeling nervous, anxious, or on edge: 1 = Several days Not being able to stop or control worryin = Not at all Worrying too much about different things: 0 = Not at all Trouble relaxin = Not at all Being so restless that it is hard to sit still: 0 = Not at all Becoming easily annoyed or irritable: 0 = Not at all Feeling afraid as if something awful might happen: 0 = Not at all Total MIGUEL-7 score (0-4 normal; 5-9 mild; 10-14 moderate; 15-21 severe): 1 Source: Developed by Drs. Alejandro Posey, Yen Allison, Glynn Chen and colleagues, with an educational loyd from [employer]. Review of Systems Const Denies poor appetite and Denies weakness Eyes Denies no additional complaints ENT Reports Normal hearing present, Denies dizziness, Denies nasal congestion, Denies tinnitus and Denies sore throat Card Denies chest pain, Denies syncope, Denies rapid heart rate and Denies dyspnea Resp Denies cough and Denies dyspnea GI Denies change in stool character, Reports constipation, Denies diarrhea, Denies nausea and Denies vomiting Denies urinary frequency, Denies difficulty voiding and Denies dysuria Neuro Reports Normal hearing present, Denies confusion, Denies dizziness, Denies syncope and Denies weakness Psych Denies confusion Physical exam (Primary Care) Vital Signs: Last Vital Signs Pulse 74 02/01/23 08:36 BP 140/82 H 02/01/23 08:36 Pulse Ox 98 02/01/23 08:36 Oxygen Delivery Method Room Air 02/01/23 08:36 BMI result Body Mass Index 31.9 Tobacco/Smoking Status: Tobacco use Status Tobacco use date assessed 02/01/23 02/01/23 08:37 Patient Tobacco Use Status Former Tobacco user 02/01/23 08:37 Tobacco use type Cigarette 02/01/23 08:37 e-Cigarette/Vaping Use Never Used 02/01/23 08:37 PHQ-9: PHQ-9 Score PHQ-9: Total score 0 02/01/23 08:50 Depression Screening Interpretation: Negative Thrive Assessment: Date of Thrive Assessment Date Thrive assessed 02/01/23 02/01/23 08:39 Currently or been in a relationship where the following occur: no concerns reported Const General: No confusion Orientation/consciousness: No confusion HENMT Head: Yes normocephalic Ears: external ears normal and TM's normal bilaterally Face and sinus: Yes normal facial exam Mouth: moist mucous membranes Throat: Yes tonsils normal Eyes Conjunctivae: conjunctivae normal Pupils: Equal, round and reactive pupils present and Pupil accommodation reflex normal Direct Ophthalmoscopy: normal light reflex Neck Neck: No lymphadenopathy Thyroid: Thyroid normal Chest Chest palpation & inspection: normal inspection of the chest Resp Effort & Inspection: normal respiratory effort and no audible wheezes Auscultation: clear to auscultation bilaterally, no crackles, no wheezes and lung sounds not diminished Cardio Rate: regular rate Rhythm: regular rhythm Peripheral pulses: radial pulses present and dorsalis pedis present GI Other: guaiac stools negative Palpation (GI): no masses Auscultation: normal bowel sounds and normoactive bowel sounds Rectal Exam - Female: deferred Skin General skin exam: no rashes or lesions noted Rashes: no rashes Neuro General: No confusion Cranial nerves: Yes Equal, round and reactive pupils present and Yes Normal hearing present Cognition (Neuro): normal cognition Gait exam (Neuro): Normal gait present Motor exam (neuro): 5/5 motor strength present throughout Deep tendon reflexes (DTR's): Right brachioradialis reflex intensity grade: 2+, Left brachioradialis reflex intensity grade: 2+, Right patellar reflex intensity grade: 2+ and Left patellar reflex intensity grade: 2+ Extrem General: No edema Office Procedures Flu Questionnaire Does the patient have a severe egg allergy?: No Does the patient have severe life threatening allergies?: No Does the patient have a fever or illness today?: No Has the patient ever had Guillain-[place] Syndrome?: No Has the patient ever had any past reaction to a flu shot?: No Immunizations flu vacc [id number] 6mos up(PF) 60 mcg(15 mcgx4)/0.5 mL IM syringe Performing Provider: Fadi Barcenas MD [facility] Administered by: Trudy Carrasco CMA on 02/01/23 08:50 Dose Route Admin Location Dispensed Lot Number Expiration Date NDC Recep 0.5 mL IM Left Deltoid 0.5 mL [id number] 09/15/23 64020-409-58 [email or web address] VIS Given Date VIS Provided VIS Publication Date 02/01/23 Single Vaccine 20 Eligibility Eligibility Date Funding Source Not [facility] Eligible 02/01/23 Private Assessment and Plan Assessment & Plan (1) Annual physical exam: Code(s): Z00.00 - Encounter for general adult medical examination without abnormal findings (2) Obesity (BMI 30-39.9): Code(s): E66.9 - Obesity, unspecified Plan: Diet and exercise (3) Asthma: Code(s): J45.909 - Unspecified asthma, uncomplicated Qualifiers: Asthma complication type: uncomplicated Asthma persistence: intermittent Asthma severity: mild Qualified Code(s): J45.20 - Mild intermittent asthma, uncomplicated Plan: Continue with inhaler (4) GERD (gastroesophageal reflux disease): Code(s): K21.9 - Gastro-esophageal reflux disease without esophagitis Plan: Avoid the foods that causes that usually spicy foods, tomato products, juices, coffee, soda and foods that your sensitive to. After eating do not lie down, allow 3-4 hours before in lie down. And keep the head of bed above 30 degrees to avoid the acid from going up. (5) Anemia: Code(s): D64.9 - Anemia, unspecified Orders: Orders Reticulocyte Count Today D64.9 - Anemia, unspecified Vitamin B12 and Folate Today D64.9 - Anemia, unspecified IRON PROFILE Today D64.9 - Anemia, unspecified Vitamin D 25-OH Total Today K21.9 - Gastro-esophageal reflux disease without esophagitis Lipid Panel Today E78.00 - Pure hypercholesterolemia, unspecified, K21.9 - Gastro-esophageal reflux disease without esophagitis Free T4 (Free Thyroxine) Today K21.9 - Gastro-esophageal reflux disease without esophagitis Influenza [id number] Immunization Today Z23 - Encounter for immunization Complete Blood Count Auto Diff Today D64.9 - Anemia, unspecified Ferritin Today D64.9 - Anemia, unspecified Comprehensive Met. Panel Today K21.9 - Gastro-esophageal reflux disease without esophagitis Thyroid Stimulating Hormone Today K21.9 - Gastro-esophageal reflux disease without esophagitis Medications: New fluticasone furoate-vilanterol 200-25 mcg/dose (Breo Ellipta) 1 inh inhalation DAILY 60 ea 12RF J45.909 - Unspecified asthma, uncomplicated Refilled albuterol sulfate 90 mcg/actuation 2 puffs PO Q4-6H PRN 8.5 grams 0RF for muscle spasm J45.20 - Mild intermittent asthma, uncomplicated Discontinued fluticasone propion-salmeterol 250-50 mcg/dose Discontinued Reason: Doctor's Order 1 ea PO BID 180 ea 3RF J45.20 - Mild intermittent asthma, uncomplicated Coding Level of Care Code Est Pt Prev Care 40-64y(36180) Diagnoses Annual physical exam Z00.00 Obesity (BMI 30-39.9) E66.9 Mild intermittent asthma without complication J45.20 Asthma complication type: uncomplicated Asthma persistence: intermittent Asthma severity: mild GERD (gastroesophageal reflux disease) K21.9 Anemia D64.9
== END 2023-02-01 09:28 | disposition home or self-care (01) ==
PROVIDERS: PCP Internal Medicine; Visit Provider Internal Medicine
DX: Z00.00 Encounter for general adult medical examination without abnormal findings (principal); E66.9 Obesity, unspecified; J45.20 Mild intermittent asthma, uncomplicated; Z68.31 Body mass index [BMI] 31.0-31.9, adult; K21.9 Gastro-esophageal reflux disease without esophagitis; Z23 Encounter for immunization; D64.9 Anemia, unspecified
CPT/HCPCS: 90471; 90686; 99396

== ENCOUNTER 2023-05-17 08:12 | Outpatient (AMB) | payer OTHER, SELFPAY ==
[2023-05-17 08:34] VITALS: BP 146/78; PULSE 70; O2SAT 100; BMI 31.4
--- NOTE | 2023-05-17 08:34 | A.OFFPC_ITS ---
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 Allergies venom-wasp [WASP VENOM] Allergy (Unknown, Verified 05/17/23 08:35) HIVES, SWELLING Medication List - Last Reconciled 05/17/23 by Fadi Barcenas MD albuterol sulfate 90 mcg/actuation 2 puffs PO Q4-6H PRN calcium carbonate-vitamin D3 500 mg-5 mcg (200 unit) (Calcium 500 + D) 1 tab PO DAILY fluticasone furoate-vilanterol 200-25 mcg/dose (Breo Ellipta) 1 inh inhalation DAILY loratadine 10 mg PO DAILY montelukast (Singulair) 10 mg PO DAILY multivitamin 1 tab PO DAILY Tobacco use date assessed: 05/17/23 Dental Screening Dental Screen Date: 05/17/23 Did you have a dental visit in the last 12 months?: No Did you have a dental problem in the last 6 months where you did not have access to dental care?: No HPI 3 month f/u HPI Details 63-year-old obese female with asthma and GERD coming in for follow-up. Last seen in January 2023. Patient is up-to-date with colonoscopy November 2019 mammogram up-to-date July 2022 [facility] Medical History (Updated 05/17/23 @ 08:44 by Fadi Barcenas MD) Breast cancer screening by mammogram GERD (gastroesophageal reflux disease) Obesity (BMI 30-39.9) Asthma Surgical History No pertinent past surgical history Family History (Updated 05/17/23 @ 08:46 by Fadi Barcenas MD) Father Lung cancer Hypertension CVD (cardiovascular disease) Mother Stroke Colon cancer Paternal Grandmother Hypothyroid Graves disease Maternal Uncle Colon cancer Paternal Grandfather Myocardial infarction Sister Graves disease Colon cancer Brother Stroke Social History (Updated 02/01/23 @ 09:04 by Fadi Barcenas MD) Housing: House Alcohol intake: current Alcohol intake frequency: a few times a week Patient Tobacco Use Status: Former Tobacco user Tobacco use type: Cigarette Years Smoked: smokes marijuana, quit 2009 smoking cigarette e-Cigarette/Vaping Use: Never Used Second Hand Smoke Exposure: No Substance Use Type: Marijuana Current occupational status: employed Cognitive needs: No Hearing needs: No Vision needs: Yes Questionnaire Thrive Questionnaire Date Thrive assessed: 05/17/23 I am a: Patient What is your living situation today?: I have a steady place to live Within the past 12 months, did the food you bought not last and you didn't have the money to get more?: Never true Within the past 12 months, did you worry whether your food would run out before you got money to buy more?: Never true Do you have trouble paying for medicines?: No Do you have trouble getting transportation to medical appointments?: No Do you have trouble paying your heating and electricity bill?: No Do you have trouble taking care of your child, family member or friend?: No Do you have trouble with day-to-day activities such as bathing, preparing meals, shopping, managing finances, etc.?: No Are you currently unemployed and looking for a job?: No Are you interested in more education?: No Please select the resources that you would like help with: None THRIVE Score: 0 AUDIT C Alcohol Use Questionnaire (AUDIT-C) 1. How often do you have a drink containing alcohol?: 2-3 times a week 2. How many drinks containing alcohol do you have on a typical day when you are drinking?: 1 or 2 3. How often do you have six or more drinks on one occasion?: Never Total Score: 3 MIGUEL-7 AMB Questionnaire MIGUEL-7 Date MIGUEL - 7 assessed: 05/17/23 Feeling nervous, anxious, or on edge: 0 = Not at all Not being able to stop or control worryin = Not at all Worrying too much about different things: 0 = Not at all Trouble relaxin = Not at all Being so restless that it is hard to sit still: 0 = Not at all Becoming easily annoyed or irritable: 0 = Not at all Feeling afraid as if something awful might happen: 0 = Not at all Total MIGUEL-7 score (0-4 normal; 5-9 mild; 10-14 moderate; 15-21 severe): 0 Source: Developed by Yen Ham Keegan, Glynn Chen and colleagues, with an educational loyd from [employer]. Physical exam (Primary Care) Vital Signs: Oxygen Delivery Method Room Air 05/17/23 08:34 BMI result Body Mass Index 31.4 Tobacco/Smoking Status: Tobacco use Status Tobacco use date assessed 02/01/23 02/01/23 08:37 Patient Tobacco Use Status Former Tobacco user 02/01/23 09:04 Tobacco use type Cigarette 02/01/23 09:04 e-Cigarette/Vaping Use Never Used 02/01/23 09:04 Thrive Assessment: Date of Thrive Assessment Date Thrive assessed 02/01/23 02/01/23 08:39 Const General: alert; No acute distress Eyes Conjunctivae: conjunctivae normal Resp Auscultation: clear to auscultation bilaterally Cardio Rate: regular rate Rhythm: regular rhythm GI Inspection: Yes normal to inspection Extrem General: Yes normal to inspection and No edema Assessment and Plan Assessment & Plan (1) Anemia: Code(s): D64.9 - Anemia, unspecified Plan: Patient is advised to get blood work done for follow-up (2) Obesity (BMI 30-39.9): Code(s): E66.9 - Obesity, unspecified Plan: Diet and exercise (3) Asthma: Code(s): J45.909 - Unspecified asthma, uncomplicated Qualifiers: Asthma severity: mild Asthma persistence: intermittent Asthma complication type: uncomplicated Qualified Code(s): J45.20 - Mild intermittent asthma, uncomplicated Plan: Continue with the inhaler albuterol and Breo . Patient's asthma is controlled has not been using the albuterol regularly. (4) GERD (gastroesophageal reflux disease): Code(s): K21.9 - Gastro-esophageal reflux disease without esophagitis Plan: Avoid the foods that causes that usually spicy foods, tomato products, juices, coffee, soda and foods that your sensitive to. After eating do not lie down, allow 3-4 hours before in lie down. And keep the head of bed above 30 degrees to avoid the acid from going up. (5) Blood pressure elevated without history of HTN: Code(s): R03.0 - Elevated blood-pressure reading, without diagnosis of hypertension Plan: Discussed my concerns about the elevated blood pressure. Advised to monitor at home sit down for about 3-5 minutes before getting the blood pressure and record. Advised to have low-salt diet and continue on losing the weight. Coding Level of Care Code Est Pt Level 4 (74145) Diagnoses Anemia D64.9 Obesity (BMI 30-39.9) E66.9 Mild intermittent asthma without complication J45.20 Asthma severity: mild Asthma persistence: intermittent Asthma complication type: uncomplicated GERD (gastroesophageal reflux disease) K21.9 Blood pressure elevated without history of HTN R03.0
== END 2023-05-17 08:53 | disposition home or self-care (01) ==
PROVIDERS: PCP Internal Medicine; Visit Provider Internal Medicine
DX: D64.9 Anemia, unspecified (principal); J45.20 Mild intermittent asthma, uncomplicated; K21.9 Gastro-esophageal reflux disease without esophagitis; R03.0 Elevated blood-pressure reading, without diagnosis of hypertension
CPT/HCPCS: 99214

== ENCOUNTER 2023-08-03 09:42 | Outpatient (REF) | payer OTHER, SELFPAY | END 2023-08-03 09:43 | disposition home or self-care (01) | LOC: HO.MAMMO 09:42 | PROVIDERS: PCP Internal Medicine; Visit Provider Internal Medicine | DX: Z12.31 Encounter for screening mammogram for malignant neoplasm of breast (principal) | CPT/HCPCS: 77063; 77067 ==

== ENCOUNTER → 2023-08-03 09:45 | Outpatient (BNV) | payer OTHER, SELFPAY | PROVIDERS: PCP Internal Medicine; Visit Provider Radiology Diagnostic Radiology | DX: Z12.31 Encounter for screening mammogram for malignant neoplasm of breast (principal) | CPT/HCPCS: 77063; 77067 ==

== ENCOUNTER 2023-08-23 07:27 | Outpatient (REF) | payer OTHER, SELFPAY ==
[2023-08-23 07:35] LABS: MANUAL DIFF FLAG NO
[2023-08-23 07:56] LABS: Basophils Absolute Auto 0.1 X10*3/uL (0.0-0.2); Basophils Percent Auto 1.5 % (0-2); Eosinophils Absolute Auto 0.2 X10*3/uL (0.0-0.4); Eosinophils Percent Auto 3.6 % (0-4); Hematocrit 38.4 % (37.0-47.0); Hemoglobin 13.1 g/dl (12.0-16.0); Imm Gran Abs Auto 0.03 X10*3/uL (0.00-0.03); Imm Gran Pct Auto 0.6 % (0.0-0.4); Immature Retic Fraction 12.2 % (3.0-15.9); Lymphocytes Absolute Auto 1.6 X10*3/uL (1.2-4.9); Lymphocytes Percent Auto 31.2 % (20-40); Mean Corpuscular HGB Conc 34.1 g/dl (31.0-35.0); Mean Corpuscular Hemoglobin 31.4 pg (27.0-33.0); Mean Corpuscular Volume 92.1 fL (80.0-98.0); Mean Platelet Volume 9.3 fL (9.4-12.3); Monocytes Absolute Auto 0.4 X10*3/uL (0.1-1.2); Monocytes Percent Auto 7.4 % (2-11); Neutrophils Absolute Auto 2.9 x10*3/uL (2.0-8.3); Neutrophils Percent Auto 55.7 % (45-73); Platelet Count 341 X10*3/uL (160-400); Red Blood Count 4.17 X10*6/uL (4.20-5.50); Red Cell Distribution Width 12.6 % (11.0-16.0); Retic HGB Equivalent 35.7 pg (30.0-35.0); Reticulocyte Percent 1.8 % (0.5-1.8); Reticulocytes Absolute 0.075 X10*6/uL (0.026-0.095); White Blood Count 5.3 X10*3/uL (4.8-10.8)
[2023-08-23 08:34] LABS: Alanine Aminotransferase 16 U/L (0-31); Albumin Level 4.1 g/dL (3.5-5.0); Alkaline Phosphatase 56 U/L (39-117); Anion Gap 9 (12-20); Aspartate Amino Transferase 18 U/L (5-31); Bilirubin Total 0.9 mg/dL (0.0-1.0); Blood Urea Nitrogen 16 mg/dL (9-16); Calcium 9.8 mg/dL (8.4-10.2); Carbon Dioxide 28 mmol/L (22-29); Chloride 109 mmol/L (96-108); Cholesterol 196 mg/dL (<200); Estimated Glomerular Filt Rate > 60; Glucose Random 90 mg/dL (60-115); HDL Cholesterol 57 mg/dL (>40); Iron 74 mcg/dL (30-160); LDL Cholesterol Calculated 124 mg/dL (<100); Percent Iron Saturation 28 % (15-50); Potassium 4.2 mmol/L (3.3-5.1); Sodium 142 mmol/L (135-145); Total Iron Binding Capacity 264 mcg/dL (228-428); Total Protein 6.8 g/dL (6.5-8.0); Triglycerides 76 mg/dL (<150); Unsaturated Iron Binding 190 ug/dL
[2023-08-23 08:54] LABS: Ferritin 124 ng/mL (10-250); Free T4 (Free Thyroxine) 0.92 ng/dL (0.71-1.85); Thyroid Stimulating Hormone 2.01 uIU/mL (0.32-4.0); Vitamin D 25-OH Total 20.3 ng/mL (>30)
[2023-08-23 09:06] LABS: Folate 9.9 ng/mL (> or = 4.0); Vitamin B12 315 pg/mL (200-900)
== END 2023-08-23 07:28 | disposition home or self-care (01) ==
LOC: HO.LAB 07:27
PROVIDERS: PCP Internal Medicine; Visit Provider Internal Medicine
DX: D64.9 Anemia, unspecified (principal); E78.00 Pure hypercholesterolemia, unspecified; K21.9 Gastro-esophageal reflux disease without esophagitis
CPT/HCPCS: 36415; 80053; 80061; 82306; 82607; 82728; 82746; 83540; 84439; 84443; 85025; 85045

== ENCOUNTER 2023-08-23 09:27 | Outpatient (AMB) | payer OTHER, SELFPAY ==
[2023-08-23 09:29] VITALS: BP 130/70; PULSE 71; O2SAT 98; BMI 30.3
--- NOTE | 2023-08-23 09:29 | A.OFFPC_ITS ---
Vital Signs 08/23/23 09:29 Height 5 ft 3 in Weight 171 lb BMI 30.3 BP 130/70 Blood Pressure Location Lt brachial Position Sitting Pulse 71 Pulse Source Pulse Oximeter Pulse Oximetry (%) 98 Oxygen Delivery Method Room Air Intake Visit Reasons: Blood pressure Allergies venom-wasp [WASP VENOM] Allergy (Unknown, Verified 08/23/23 09:30) HIVES, SWELLING Tobacco use date assessed: 05/17/23 Dental Screening Dental Screen Date: 05/17/23 HPI Blood pressure HPI Details 63-year-old obese female with anemia ast hma GERD last seen in May having an elevated blood pressure this was in 06/05/2023. Patient is here for follow-up. Patient is up-to-date with colonoscopy 12/05/2024 years mammograms up-to-date. COUNTS INCLUDE 234 BEDS AT [facility] Medical History (Updated 08/23/23 @ 09:34 by Fadi Barcenas MD) Tubular adenoma of colon Breast cancer screening by mammogram GERD (gastroesophageal reflux disease) Obesity (BMI 30-39.9) Asthma Surgical History No pertinent past surgical history Family History (Updated 05/17/23 @ 08:46 by Fadi Barcenas MD) Father Lung cancer Hypertension CVD (cardiovascular disease) Mother Stroke Colon cancer Paternal Grandmother Hypothyroid Graves disease Maternal Uncle Colon cancer Paternal Grandfather Myocardial infarction Sister Graves disease Colon cancer Brother Stroke Social History (Updated 02/01/23 @ 09:04 by Fadi Barcenas MD) Housing: House Alcohol intake: current Alcohol intake frequency: a few times a week Patient Tobacco Use Status: Former Tobacco user Tobacco use type: Cigarette Years Smoked: smokes marijuana, quit 2009 smoking cigarette e-Cigarette/Vaping Use: Never Used Second Hand Smoke Exposure: No Substance Use Type: Marijuana Current occupational status: employed Cognitive needs: No Hearing needs: No Vision needs: Yes Questionnaire PHQ-9 Over the last 2 weeks, how often have you been bothered by any of the following problems? 1. Little interest or pleasure in doing things: not at all 2. Feeling down, depressed, or hopeless: not at all 3. Trouble falling or staying asleep, or sleeping too much: not at all 4. Feeling tired or having little energy: not at all 5. Poor appetite or overeating: not at all 6. Feeling bad about yourself - or that you are a failure or have let yourself or your family down: not at all 7. Trouble concentrating on things, such as reading the newspaper or watching television: not at all 8. Moving or speaking so slowly that other people could have noticed. Or the opposite - being so fidgety or restless that you have been moving around a lot more than usual: not at all 9. Thoughts that you would be better off or of hurting yourself in some way: not at all Total score: 0 Depression Screening Interpretation: Negative Depression Screening Done: Yes Source: Developed by Drs. Alejandro Posey, Yen Allison, Glynn Chen and colleagues, with an educational loyd from [employer]. Thrive Questionnaire Date Thrive assessed: 05/17/23 AUDIT C Alcohol Use Questionnaire (AUDIT-C) 1. How often do you have a drink containing alcohol?: 2-3 times a week 2. How many drinks containing alcohol do you have on a typical day when you are drinking?: 1 or 2 3. How often do you have six or more drinks on one occasion?: Never Total Score: 3 MIGUEL-7 AMB Questionnaire MIGUEL-7 Date MIGUEL - 7 assessed: 05/17/23 Source: Developed by Drs. Alejandro Posey, Yen Allison, Glynn Chen and colleagues, with an educational loyd from [employer]. Physical exam (Primary Care) Vital Signs: Last Vital Signs Pulse 71 08/23/23 09:29 BP 130/70 08/23/23 09:29 Pulse Ox 98 08/23/23 09:29 Oxygen Delivery Method Room Air 08/23/23 09:29 BMI result Body Mass Index 30.3 Tobacco/Smoking Status: Tobacco use Status Tobacco use date assessed 05/17/23 08/23/23 09:35 Patient Tobacco Use Status Former Tobacco user 08/23/23 09:35 Tobacco use type Cigarette 08/23/23 09:35 e-Cigarette/Vaping Use Never Used 08/23/23 09:35 PHQ-9: PHQ-9 Score PHQ-9: Total score 0 08/23/23 09:35 Depression Screening Interpretation: Negative Thrive Assessment: Date of Thrive Assessment Date Thrive assessed 05/17/23 08/23/23 09:35 Const General: alert; No acute distress Eyes Conjunctivae: conjunctivae normal Resp Auscultation: clear to auscultation bilaterally Cardio Rate: regular rate Rhythm: regular rhythm GI Inspection: Yes normal to inspection Extrem General: Yes normal to inspection and No edema Assessment and Plan Assessment & Plan (1) Blood pressure elevated without history of HTN: Code(s): R03.0 - Elevated blood-pressure reading, without diagnosis of hypertension Plan: low salt diet, (2) Asthma: Code(s): J45.909 - Unspecified asthma, uncomplicated Qualifiers: Asthma complication type: uncomplicated Asthma persistence: intermittent Asthma severity: mild Qualified Code(s): J45.20 - Mild intermittent asthma, uncomplicated Plan: On Breo and albuterol (3) Vitamin D deficiency: Code(s): E55.9 - Vitamin D deficiency, unspecified Plan: increase vitamin D 2000 U once a day Coding Level of Care Code Est Pt Level 4 (48006) Diagnoses Blood pressure elevated without history of HTN R03.0 Mild intermittent asthma without complication J45.20 Asthma complication type: uncomplicated Asthma persistence: intermittent Asthma severity: mild Vitamin D deficiency E55.9
== END 2023-08-23 09:47 | disposition home or self-care (01) ==
PROVIDERS: PCP Internal Medicine; Visit Provider Internal Medicine
DX: R03.0 Elevated blood-pressure reading, without diagnosis of hypertension (principal); J45.20 Mild intermittent asthma, uncomplicated; E55.9 Vitamin D deficiency, unspecified
CPT/HCPCS: 99214

== ENCOUNTER 2024-01-13 09:17 | Outpatient (AMB) | payer OTHER, SELFPAY ==
[2024-01-13 09:19] VITALS: BP 140/82; PULSE 77; O2SAT 99; BMI 30.5
--- NOTE | 2024-01-13 09:19 | MHC.PC.OV ---
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 Allergies venom-wasp [WASP VENOM] Allergy (Unknown, Verified 01/13/24 09:19) HIVES, SWELLING Medication List - Last Reconciled 01/13/24 by Fadi Barcenas MD albuterol sulfate 90 mcg/actuation 2 puffs PO Q4-6H PRN calcium carbonate-vitamin D3 500 mg-5 mcg (200 unit) (Calcium 500 + D) 1 tab PO DAILY fluticasone furoate-vilanterol 200-25 mcg/dose (Breo Ellipta) 1 inh inhalation DAILY loratadine 10 mg PO DAILY montelukast (Singulair) 10 mg PO DAILY multivitamin 1 tab PO DAILY Tobacco use date assessed: 05/17/23 Dental Screening Dental Screen Date: 05/17/23 Did you have a dental visit in the last 12 months?: No Did you have a dental problem in the last 6 months where you did not have access to dental care?: No Was dental information given to patient?: Patient has dentist HPI PE HPI Details 63-year-old obese female with a history of asthma GERD coming in for physical exam. Last seen in August concerns about elevated blood pressure. Patient's colonoscopy 11/2019 up-to-date, . mammogram July 2023 [facility] Medical History (Updated 01/13/24 @ 12:46 by Fadi Barcenas MD) Tubular adenoma of colon Breast cancer screening by mammogram GERD (gastroesophageal reflux disease) Obesity (BMI 30-39.9) Asthma Surgical History No pertinent past surgical history Family History (Updated 05/17/23 @ 08:46 by Fadi Barcenas MD) Father Lung cancer Hypertension CVD (cardiovascular disease) Mother Stroke Colon cancer Paternal Grandmother Hypothyroid Graves disease Maternal Uncle Colon cancer Paternal Grandfather Myocardial infarction Sister Graves disease Colon cancer Brother Stroke Social History (Updated 01/13/24 @ 09:45 by Fadi Barcenas MD) Housing: House Alcohol intake: current Alcohol intake frequency: a few times a week Comment: 2-3 x a month 2 drinks Patient Tobacco Use Status: Former Tobacco user Tobacco use type: Cigarette Years Smoked: smokes marijuana, quit 2009 smoking cigarette e-Cigarette/Vaping Use: Never Used Second Hand Smoke Exposure: No Substance Use Type: Marijuana Current occupational status: employed Cognitive needs: No Hearing needs: No Vision needs: Yes Questionnaire PHQ-9 Over the last 2 weeks, how often have you been bothered by any of the following problems? 1. Little interest or pleasure in doing things: not at all 2. Feeling down, depressed, or hopeless: not at all 3. Trouble falling or staying asleep, or sleeping too much: not at all 4. Feeling tired or having little energy: not at all 5. Poor appetite or overeating: not at all 6. Feeling bad about yourself - or that you are a failure or have let yourself or your family down: not at all 7. Trouble concentrating on things, such as reading the newspaper or watching television: not at all 8. Moving or speaking so slowly that other people could have noticed. Or the opposite - being so fidgety or restless that you have been moving around a lot more than usual: not at all 9. Thoughts that you would be better off or of hurting yourself in some way: not at all Total score: 0 Source: Developed by Drs. Alejandro Posey, Yen Allison, Glynn Chen and colleagues, with an educational loyd from [employer]. Thrive Questionnaire Date Thrive assessed: 01/06/24 I am a: Patient What is your living situation today?: I have a steady place to live Within the past 12 months, did the food you bought not last and you didn't have the money to get more?: Never true Within the past 12 months, did you worry whether your food would run out before you got money to buy more?: Never true Do you have trouble paying for medicines?: No Do you have trouble getting transportation to medical appointments?: No Do you have trouble paying your heating and electricity bill?: No Do you have trouble taking care of your child, family member or friend?: No Do you have trouble with day-to-day activities such as bathing, preparing meals, shopping, managing finances, etc.?: No Are you currently unemployed and looking for a job?: No Are you interested in more education?: No Please select the resources that you would like help with: None Currently or been in a relationship where the following occur: No concerns reported THRIVE Score: 0 AUDIT C Alcohol Use Questionnaire (AUDIT-C) 1. How often do you have a drink containing alcohol?: 2-4 times a month 2. How many drinks containing alcohol do you have on a typical day when you are drinking?: 1 or 2 Total Score: 2 MIGUEL-7 AMB Questionnaire MIGUEL-7 Date MIGUEL - 7 assessed: 05/17/23 Feeling nervous, anxious, or on edge: 0 = Not at all Not being able to stop or control worryin = Not at all Worrying too much about different things: 0 = Not at all Trouble relaxin = Not at all Being so restless that it is hard to sit still: 0 = Not at all Becoming easily annoyed or irritable: 0 = Not at all Feeling afraid as if something awful might happen: 0 = Not at all Total MIGUEL-7 score (0-4 normal; 5-9 mild; 10-14 moderate; 15-21 severe): 0 Source: Developed by Drs. Alejandro Posey, Yen Allison, Glynn Chen and colleagues, with an educational loyd from [employer]. MIGUEL-7 Assessment Billing MIGUEL-7 Assessment Tool: MIGUEL-7 Assessment 00775 Review of Systems Const Denies poor appetite and Denies weakness Eyes Denies no additional complaints ENT Reports Normal hearing present, Denies dizziness, Denies nasal congestion, Denies tinnitus and Denies sore throat Card Denies chest pain, Denies syncope, Denies rapid heart rate and Denies dyspnea Resp Denies cough and Denies dyspnea GI Denies change in stool character, Reports constipation, Denies diarrhea, Denies nausea and Denies vomiting Denies urinary frequency, Denies difficulty voiding and Denies dysuria Neuro Reports Normal hearing present, Denies confusion, Denies dizziness, Denies syncope and Denies weakness Psych Denies confusion Physical exam (Primary Care) Vital Signs: Last Vital Signs Pulse 77 01/13/24 09:19 BP 134/70 01/13/24 09:42 Pulse Ox 99 01/13/24 09:19 Oxygen Delivery Method Room Air 10/28/24 09:19 BMI result Body Mass Index 30.5 Tobacco/Smoking Status: Tobacco use Status Tobacco use date assessed 05/17/23 01/13/24 09:24 Patient Tobacco Use Status Former Tobacco user 01/13/24 09:45 Tobacco use type Cigarette 01/13/24 09:45 e-Cigarette/Vaping Use Never Used 01/13/24 09:45 PHQ-9: PHQ-9 Score PHQ-9: Total score 0 01/13/24 09:40 Thrive Assessment: Date of Thrive Assessment Date Thrive assessed 01/06/24 01/13/24 09:24 Currently or been in a relationship where the following occur: No concerns reported Const General: No confusion Orientation/consciousness: No confusion HENMT Head: Yes normocephalic Ears: external ears normal and TM's normal bilaterally Face and sinus: Yes normal facial exam Mouth: moist mucous membranes Throat: Yes tonsils normal Eyes Conjunctivae: conjunctivae normal Pupils: Equal, round and reactive pupils present and Pupil accommodation reflex normal Direct Ophthalmoscopy: normal light reflex Neck Neck: No lymphadenopathy Thyroid: Thyroid normal Chest Chest palpation & inspection: normal inspection of the chest Resp Effort & Inspection: normal respiratory effort and no audible wheezes Auscultation: clear to auscultation bilaterally, no crackles, no wheezes and lung sounds not diminished Cardio Rate: regular rate Rhythm: regular rhythm Peripheral pulses: radial pulses present and dorsalis pedis present GI Palpation (GI): no masses Auscultation: normal bowel sounds and normoactive bowel sounds Rectal Exam - Female: deferred Skin General skin exam: no rashes or lesions noted Rashes: no rashes Neuro General: No confusion Cranial nerves: Yes Equal, round and reactive pupils present and Yes Normal hearing present Cognition (Neuro): normal cognition Gait exam (Neuro): Normal gait present Motor exam (neuro): 5/5 motor strength present throughout Deep tendon reflexes (DTR's): Right brachioradialis reflex intensity grade: 2+, Left brachioradialis reflex intensity grade: 2+, Right patellar reflex intensity grade: 2+ and Left patellar reflex intensity grade: 2+ Extrem General: No edema Coding Level of Care Code Est Pt Prev Care 40-64y(29708) Diagnoses Annual physical exam Z00.00 Obesity (BMI 30-39.9) E66.9 Mild intermittent asthma without complication J45.20 Asthma complication type: uncomplicated Asthma persistence: intermittent Asthma severity: mild Gastroesophageal reflux disease without esophagitis K21.9 Esophagitis presence: without esophagitis Blood pressure elevated without history of HTN R03.0 Vitamin D deficiency E55.9 Hearing difficulty of both ears H91.93 Laterality: bilateral Additional Codes MIGUEL-7 Assessment Billing - MIGUEL-7 Assessment Tool: MIGUEL-7 Assessment 64992 ([id number]) Assessment & Plan Assessment & Plan (1) Annual physical exam: Code(s): Z00.00 - Encounter for general adult medical examination without abnormal findings Category: Medical Plan: Patient is advised to eat healthy, keep well hydrated, keep active and have adequate sleep. (2) Obesity (BMI 30-39.9): Code(s): E66.9 - Obesity, unspecified Category: Medical Plan: Diet and exercise (3) Asthma: Code(s): J45.909 - Unspecified asthma, uncomplicated Category: Medical Qualifiers: Asthma complication type: uncomplicated Asthma persistence: intermittent Asthma severity: mild Qualified Code(s): J45.20 - Mild intermittent asthma, uncomplicated Plan: Continue with Breo, albuterol and montelukast (4) GERD (gastroesophageal reflux disease): Code(s): K21.9 - Gastro-esophageal reflux disease without esophagitis Category: Medical Qualifiers: Esophagitis presence: without esophagitis Qualified Code(s): K21.9 - Gastro-esophageal reflux disease without esophagitis Plan: Avoid the foods that causes that usually spicy foods, tomato products, juices, coffee, soda and foods that your sensitive to. After eating do not lie down, allow 3-4 hours before in lie down. And keep the head of bed above 30 degrees to avoid the acid from going up. (5) Blood pressure elevated without history of HTN: Code(s): R03.0 - Elevated blood-pressure reading, without diagnosis of hypertension Category: Medical Plan: Continue to monitor blood pressure and record. Repeat blood work in office normal (6) Vitamin D deficiency: Code(s): E55.9 - Vitamin D deficiency, unspecified Category: Medical Plan: Vitamin-D 1000 units to 2000 units once a day (7) Hearing difficulty: Code(s): H91.90 - Unspecified hearing loss, unspecified ear Category: Medical Qualifiers: Laterality: bilateral Qualified Code(s): H91.93 - Unspecified hearing loss, bilateral Plan: Patient is sent for hearing test Orders: Referrals Speech and Hearing Referral H91.90 - Unspecified hearing loss, unspecified ear
[2024-01-13 09:42] VITALS: BP 134/70
== END 2024-01-13 10:02 | disposition home or self-care (01) ==
PROVIDERS: PCP Internal Medicine; Visit Provider Internal Medicine
DX: Z00.00 Encounter for general adult medical examination without abnormal findings (principal); J45.20 Mild intermittent asthma, uncomplicated; E66.9 Obesity, unspecified; Z68.30 Body mass index [BMI] 30.0-30.9, adult; K21.9 Gastro-esophageal reflux disease without esophagitis; R03.0 Elevated blood-pressure reading, without diagnosis of hypertension; E55.9 Vitamin D deficiency, unspecified; H91.93 Unspecified hearing loss, bilateral

== ENCOUNTER → 2024-01-13 09:17 | Outpatient (BNVA) | payer OTHER, SELFPAY | PROVIDERS: PCP Internal Medicine; Visit Provider Internal Medicine | DX: Z00.00 Encounter for general adult medical examination without abnormal findings (principal); E66.9 Obesity, unspecified; J45.20 Mild intermittent asthma, uncomplicated; K21.9 Gastro-esophageal reflux disease without esophagitis; R03.0 Elevated blood-pressure reading, without diagnosis of hypertension; E55.9 Vitamin D deficiency, unspecified; H91.93 Unspecified hearing loss, bilateral; Z79.899 Other long term (current) drug therapy | CPT/HCPCS: 96127 ==

== ENCOUNTER 2024-08-07 07:50 | Outpatient (REF) | payer OTHER, SELFPAY ==
--- OUTSIDE RECORDS SUMMARY | 2024-08-07 07:52 | XMS_ITS | Data Portability ---
Author Organization [facility] [address] Address [address] [place] [address] Assessment No assessment recorded. Plan of Treatment Reminders Order Date Submit Date Provider Last Modified By Organization Details Last Modified Time Details Appointments None recorded. [facility], [address] [place] [address], [id number], 13:28:11 rapid SARS CoV 2 Ag, QL IA, respiratory specimen 2021 [place] [address] _[facility], [address] [place] [address], [phone], 13:28:11 Referral None recorded. Procedures None recorded. Surgeries None recorded. Imaging None recorded. Medication Orders None recorded. Patient TargetsNo targets recorded. Patient Instructions Encounter Date Encounter Id Patient Instructions Last Modified By Organization Details Last Modified Time 02/16/2022 [id number] coronavirus (covid-19): care instructions [email or web address] Not available 02/16/2022 13:28:11 upper respirator y infection (cold): care instructions [email or web address] Not available 02/16/2022 13:28:11 Reason for Referral None Reported. Results Created Date Observation Date Name Description Value Unit Range Abnormal Flag Note LastModifiedBy Organization Detail LastModifiedTime 02/17/20 22 02/16/2022 rapid SARS CoV 2 Ag, QL IA, respi rator y speci men Unknown Analyte positi ve Not Available [facility] [address] [facility] [place], [address], 02/16/2022 12:49:49 02/17/20 22 02/16/2022 rapid flu (A+B) Unknown Analyte negati ve Not Available [email or web address] [facility] [place], [address], 02/16/2022 12:49:38 02/17/20 22 02/16/2022 rapid flu (A+B) Unknown Analyte negati ve Not Available [address] [facility] [place], [address], 02/16/2022 12:49:38 Result Notes None recorded. Problems Name Problem SNOMED Code Status Onset Date Resolution Date Notes Provider Name and Address Organization Details Recorded Time Asthma 548821793 Active 022 MULUGETA crow PA - [facility] 02/16/2022 12:40:27 Problem Notes None recorded. Medical Equipment None Reported. Allergies No known drug allergies Medications Name Sig Start Date Stop Date Status Note LastModified by Organization Details LastModified Time fluticasone 250 mcg-salmeterol 50 mcg/dose blistr powdr for inhalation active Not Available Not Availab le Not Available montelukast 10 mg tablet active Not Available Not Available No t Available loratadine active Not Available Not Av ailable Not Available Vitals Date Recorded Body height Body mass index (BMI) Body weight Body temperature Respiratory rate Heart rate Oxygen saturation Oxygen saturation in Arterial blood by Pulse oximetry Systolic blood pressure Diastolic blood pressure Provider Name and Address Organization Details Last Updated DateTime 162.56 cm 30.9 kg/m2 97868.6 3 g 97.6 [degF] 18 /min 72 /min 99 % 99 % 147 mm[Hg] 84 mm[Hg] MULUGETA Wang PA - [facility] 12:42:14 Social History Question Answer Notes LastModified by Organizat ion Details LastModified Time Tobacco Smoking Status Never Smoker MULUGETA crow PA - [facility] 02/16/2022 12:40:44 What Is Your Water Source? City Information not available 02/16/2022 What Is Your Heat Source? Electric Information not available 02/16/2022 Have You Had Direct Contact, Or Contact During Intimacy, With Monkeypox Rash, Scabs, Or Body Fluids From A Person With Monkeypox? No Information not available 02/16/2022 Have You Recently Traveled Abroad? No Information not available 02/16/2022 Sex: Unknown Functional Status Question Answer Note LastModified by Organizat ion Details LastModified Time Do you use any illicit or recreational drugs? No Information not available 02/16/2022 Do you or have you ever used any other forms of tobacco or nicotine? No Information not available 02/16/2022 Mental Status None recorded. Family History Relationship Description Onset Age of this Age Resolved Age Notes LastModified by Organization Details LastModified Time Father No current problems or disability Not available 12:40:36 Mother No current problems or disability Not available 12:40:36 Medical History No medical history recorded. Gynecological HistoryNo gynecological history recorded. Obstetrics History GPAL:G 0 P 0 0 0 0 Past Encounters Encounter ID Performer Location Encounter Start Date Encounter Closed Date Diagnosis/Indication Diagnosis SNOMED-CT Code Diagnosis ICD10 Code Diagnosis Note [id number] [facility] [address] [place] [address] 05/03/2018 11:06:40 05/03/2018 11:40:28 [id number] [facility] [address] [place] [address] 01/14/2019 08:35:50 01/14/2019 08:53:53 [id number] [address] [place] [address] 08/14/2015 10:17:02 08/14/2015 10:53:26 [id number] [facility] RICE [address] [address] [place] [address] 02/16/2022 12:22:09 02/16/2022 13:36:20 COVID-19 686836418 U07.1 Acute uppe r respiratory infection 29332998 J06.9 Health Concerns Section Related Observation LastModified by Organization Detai ls LastModified Time None Recorded Concern Status LastModified by Organization Details LastModified Time None Recorded Advance Directives Directive None Recorded Payers Insurance Date Sequence Insurance Name Policy Number Policy Haile Covered Member ID Haile Member ID Guarantor Name 02/16/2022 1 [employer] - OPEN ACCESS [employer]US [id number] Lynda Pearson [id number] Lynda Pearson 02/16/2022 1 [facility] [id number] Lynda Pearson [id number] Lynda Pearson Notes Date Note Type Note Provider Name and Address Organization Details Recorded Time 02/16/2022 text/html CongestionReport ed bypatient.Notes:Lynda is a 61 yo F with PMH asthma here for evaluation of congestion, sore throat, cough and low grade fevers onset 5 days. No SOB, CP, wheezing. Notes she was exposed to sick persons on but none of them have tested. Asking for flu/covid testing here today. SARA CAMPBELL JD [address] [place], [address], [place] - [facility] 02/16/2022 13:34:36 OBGyn Episode No OBEpisode recorded.
== END 2024-08-07 07:51 | disposition home or self-care (01) ==
LOC: HO.MAMMO 07:50
PROVIDERS: PCP Internal Medicine; Visit Provider Internal Medicine
DX: Z12.31 Encounter for screening mammogram for malignant neoplasm of breast (principal)
CPT/HCPCS: 77063; 77067

== ENCOUNTER → 2024-08-07 08:00 | Outpatient (BNV) | payer OTHER, SELFPAY | PROVIDERS: PCP Internal Medicine; Visit Provider Internal Medicine | DX: Z12.31 Encounter for screening mammogram for malignant neoplasm of breast (principal) | CPT/HCPCS: 77063; 77067 ==

== ENCOUNTER 2025-01-22 08:52 | Outpatient (AMB) | payer OTHER, SELFPAY ==
[2025-01-22 08:56] VITALS: BP 122/74; PULSE 74; TEMP 36.3; O2SAT 99; BMI 30.5
--- NOTE | 2025-01-22 08:56 | MHC.PC.OV ---
Vital Signs 01/22/25 08:56 Height 5 ft 3 in Weight 172 lb 4 oz BMI 30.5 BP 122/74 Blood Pressure Location Lt brachial Position Sitting Pulse 74 Pulse Source Pulse Oximeter Temp 97.3 F Temp Source Temporal Artery Scan Pulse Oximetry (%) 99 Oxygen Delivery Method Room Air Intake Visit Reasons: Annual Exam Allergies venom-wasp (WASP VENOM) Allergy (Unknown, Verified 01/22/25 08:59) HIVES, SWELLING Medication List - Last Reconciled 01/22/25 by Fadi Barcenas MD albuterol sulfate 90 mcg/actuation 2 puffs PO Q4-6H PRN calcium carbonate-vitamin D3 500 mg-5 mcg (200 unit) (Calcium 500 + D) 1 tab PO DAILY fluticasone furoate-vilanterol 200-25 mcg/dose (Breo Ellipta) 1 ea PO DAILY loratadine 10 mg PO DAILY montelukast (Singulair) 10 mg PO DAILY multivitamin 1 tab PO DAILY Tobacco use date assessed: 01/22/25 Dental Screening Dental Screen Date: 01/22/25 Did you have a dental visit in the last 12 months?: Yes Did you have a dental problem in the last 6 months where you did not have access to dental care?: No Was dental information given to patient?: Patient has dentist [facility] Medical History Tubular adenoma of colon Breast cancer screening by mammogram GERD (gastroesophageal reflux disease) Obesity (BMI 30-39.9) Asthma Surgical History No pertinent past surgical history Family History Father Lung cancer Hypertension CVD (cardiovascular disease) Mother Stroke Colon cancer Paternal Grandmother Hypothyroid Graves disease Maternal Uncle Colon cancer Paternal Grandfather Myocardial infarction Sister Graves disease Colon cancer Brother Stroke Social History Housing: House Alcohol intake: current Alcohol intake frequency: a few times a week Comment: 2-3 x a month 2 drinks Patient Tobacco Use Status: Former Tobacco user Tobacco use type: Cigarette Years Smoked: smokes marijuana, quit 2009 smoking cigarette e-Cigarette/Vaping Use: Never Used Second Hand Smoke Exposure: No Substance Use Type: Marijuana Current occupational status: employed Cognitive needs: No Hearing needs: No Vision needs: Yes Questionnaire PHQ-9 Over the last 2 weeks, how often have you been bothered by any of the following problems? 1. Little interest or pleasure in doing things: not at all 2. Feeling down, depressed, or hopeless: not at all 3. Trouble falling or staying asleep, or sleeping too much: not at all 4. Feeling tired or having little energy: not at all 5. Poor appetite or overeating: not at all 6. Feeling bad about yourself - or that you are a failure or have let yourself or your family down: not at all 7. Trouble concentrating on things, such as reading the newspaper or watching television: not at all 8. Moving or speaking so slowly that other people could have noticed. Or the opposite - being so fidgety or restless that you have been moving around a lot more than usual: not at all 9. Thoughts that you would be better off or of hurting yourself in some way: not at all Total score: 0 Depression Screening Interpretation: Negative Depression Screening Done: Yes 70967 - PHQ-9 Billing: Yes Source: Developed by Drs. Alejandro Posey, Yen Allison, Glynn Chen and colleagues, with an educational loyd from [employer]. Thrive Questionnaire Date Thrive assessed: 01/16/25 I am a: Patient What is your living situation today?: I have a steady place to live Within the past 12 months, did the food you bought not last and you didn't have the money to get more?: Never true Within the past 12 months, did you worry whether your food would run out before you got money to buy more?: Never true Do you have trouble paying for medicines?: No Do you have trouble getting transportation to medical appointments?: No Do you have trouble paying your heating and electricity bill?: No Do you have trouble taking care of your child, family member or friend?: No Do you have trouble with day-to-day activities such as bathing, preparing meals, shopping, managing finances, etc.?: No Are you currently unemployed and looking for a job?: No Are you interested in more education?: No Please select the resources that you would like help with: None Currently or been in a relationship where the following occur: No concerns reported THRIVE Score: 0 AUDIT C Alcohol Use Questionnaire (AUDIT-C) 1. How often do you have a drink containing alcohol?: 2-4 times a month 2. How many drinks containing alcohol do you have on a typical day when you are drinking?: 1 or 2 3. How often do you have six or more drinks on one occasion?: Never Total Score: 2 MIGUEL-7 AMB Questionnaire MIGUEL-7 Date MIGUEL - 7 assessed: 01/22/25 Feeling nervous, anxious, or on edge: 0 = Not at all Not being able to stop or control worryin = Not at all Worrying too much about different things: 0 = Not at all Trouble relaxin = Not at all Being so restless that it is hard to sit still: 0 = Not at all Becoming easily annoyed or irritable: 0 = Not at all Feeling afraid as if something awful might happen: 0 = Not at all Total MIGUEL-7 score (0-4 normal; 5-9 mild; 10-14 moderate; 15-21 severe): 0 Source: Developed by Drs. Alejandro Posey, Yen Allison, Glynn Chen and colleagues, with an educational loyd from [employer]. MIGUEL-7 Assessment Billing MIGUEL-7 Assessment Tool: MIGUEL-7 Assessment 82145 Review of Systems Const Denies poor appetite and Denies weakness Eyes Denies no additional complaints ENT Reports Normal hearing present, Denies dizziness, Denies nasal congestion, Denies tinnitus and Denies sore throat Card Denies chest pain, Denies syncope, Denies rapid heart rate and Denies dyspnea Resp Denies cough and Denies dyspnea GI Denies change in stool character, Reports constipation, Denies diarrhea, Denies nausea and Denies vomiting Denies urinary frequency, Denies difficulty voiding and Denies dysuria Neuro Reports Normal hearing present, Denies confusion, Denies dizziness, Denies syncope and Denies weakness Psych Denies confusion Physical exam (Primary Care) Vital Signs: Last Vital Signs Temp 97.3 F 01/22/25 08:56 Pulse 74 01/22/25 08:56 BP 122/74 01/22/25 08:56 Pulse Ox 99 01/22/25 08:56 Oxygen Delivery Method Room Air 01/22/25 08:56 BMI result Body Mass Index 30.5 Tobacco/Smoking Status: Tobacco use Status Tobacco use date assessed 01/22/25 01/22/25 09:00 Patient Tobacco Use Status Former Tobacco user 01/22/25 09:00 Tobacco use type Cigarette 01/22/25 09:00 e-Cigarette/Vaping Use Never Used 01/22/25 09:00 PHQ-9: PHQ-9 Score PHQ-9: Total score 0 01/22/25 09:06 Depression Screening Interpretation: Negative Thrive Assessment: Date of Thrive Assessment Date Thrive assessed 01/16/25 01/22/25 09:00 Currently or been in a relationship where the following occur: No concerns reported Const General: No confusion Orientation/consciousness: No confusion HENMT Head: Yes normocephalic Ears: external ears normal and TM's normal bilaterally Face and sinus: Yes normal facial exam Mouth: moist mucous membranes Throat: Yes tonsils normal Eyes Conjunctivae: conjunctivae normal Pupils: Equal, round and reactive pupils present and Pupil accommodation reflex normal Direct Ophthalmoscopy: normal light reflex Neck Neck: No lymphadenopathy Thyroid: Thyroid normal Chest Chest palpation & inspection: normal inspection of the chest Resp Effort & Inspection: normal respiratory effort and no audible wheezes Auscultation: clear to auscultation bilaterally, no crackles, no wheezes and lung sounds not diminished Cardio Rate: regular rate Rhythm: regular rhythm Peripheral pulses: radial pulses present and dorsalis pedis present GI Palpation (GI): no masses Auscultation: normal bowel sounds and normoactive bowel sounds Rectal Exam - Female: deferred Skin General skin exam: no rashes or lesions noted Rashes: no rashes Neuro General: No confusion Cranial nerves: Yes Equal, round and reactive pupils present and Yes Normal hearing present Cognition (Neuro): normal cognition Gait exam (Neuro): Normal gait present Motor exam (neuro): 5/5 motor strength present throughout Deep tendon reflexes (DTR's): Right brachioradialis reflex intensity grade: 2+, Left brachioradialis reflex intensity grade: 2+, Right patellar reflex intensity grade: 2+ and Left patellar reflex intensity grade: 2+ Extrem General: No edema Coding Level of Care Code Est Pt Prev Care 40-64y(79584) Diagnoses Annual physical exam Z00.00 Mild intermittent asthma without complication J45.20 Asthma complication type: uncomplicated Asthma persistence: intermittent Asthma severity: mild Gastroesophageal reflux disease without esophagitis K21.9 Esophagitis presence: without esophagitis Obesity (BMI 30-39.9) E66.9 Vitamin D deficiency E55.9 Colon cancer screening Z12.11 Dysphagia R13.10 Additional Codes MIGUEL-7 Assessment Billing - MIGUEL-7 Assessment Tool: MIGUEL-7 Assessment 31719 ([id number]) PHQ-9 - 59104 - PHQ-9 Billing: Yes ([id number]) Assessment & Plan Assessment & Plan (1) Annual physical exam: Code(s): Z00.00 - Encounter for general adult medical examination without abnormal findings Category: Medical Plan: Patient is advised to eat healthy, keep well hydrated, keep active and have adequate sleep. (2) Asthma: Code(s): J45.909 - Unspecified asthma, uncomplicated Category: Medical Qualifiers: Asthma complication type: uncomplicated Asthma persistence: intermittent Asthma severity: mild Qualified Code(s): J45.20 - Mild intermittent asthma, uncomplicated Plan: On albuterol inhaler and Breo plus montelukast. Advised to rinse mouth after using Breo (3) GERD (gastroesophageal reflux disease): Code(s): K21.9 - Gastro-esophageal reflux disease without esophagitis Category: Medical Qualifiers: Esophagitis presence: without esophagitis Qualified Code(s): K21.9 - Gastro-esophageal reflux disease without esophagitis Plan: Avoid the foods that causes that usually spicy foods, tomato products, juices, coffee, soda and foods that your sensitive to. After eating do not lie down, allow 3-4 hours before in lie down. And keep the head of bed above 30 degrees to avoid the acid from going up. (4) Obesity (BMI 30-39.9): Code(s): E66.9 - Obesity, unspecified Category: Medical Plan: Diet and exercise (5) Vitamin D deficiency: Code(s): E55.9 - Vitamin D deficiency, unspecified Category: Medical Plan: Vitamin-D 0602-2313 units once a day (6) Colon cancer screening: Code(s): Z12.11 - Encounter for screening for malignant neoplasm of colon Category: Medical (7) Dysphagia: Code(s): R13.10 - Dysphagia, unspecified Category: Medical Plan History of Present Illness The patient is a 64-year-old female presenting for a physical exam. Her past medical history includes asthma, GERD, and anemia. She has had no new diagnoses or surgeries since her last visit in December of the previous year. For health maintenance, her last colonoscopy was in November 2019, and she is due for another one this year. Her mammogram is up to date until July 2024. Her last eye exam was in November with no new issues reported. Her current medications include an albuterol inhaler, which she uses infrequently, Breo (for which she rinses her mouth after use), and Singulair (montelukast) for asthma. She also takes calcium, vitamin D, loratadine, and multivitamins. The patient reports difficulty swallowing for the past year, which occurs intermittently. She also experiences heartburn weekly. Significant family history includes lung cancer, colon cancer in her mother, sister, and uncle, heart attack in her paternal grandfather, and stroke in her mother and brother. Health Maintenance Fasting blood work, including a magnesium level, has been ordered. A referral has been placed to gastroenterology for a colonoscopy, as her last one was in 2019. Discussed the option of the shingles vaccine, noting it is effective and recommended but not required. Patient is up to date on her tetanus, pneumonia, flu, and COVID-19 vaccinations. Will follow up on blood work results once they are available. Social History - Alcohol Use: The patient reports drinking alcohol a couple of times per month, consuming two to three drinks at a time. - Tobacco Use: Denies using cigarettes. - Substance Use: Smokes marijuana. - The patient was counseled on the increased risks for bladder cancer, heart attacks, and strokes associated with smoking marijuana and was advised that edibles are a safer alternative. - Exercise: Reports she exercises regularly. - Diet: Reports drinking water all day and hibiscus tea. Review of Systems - Constitutional: Denies fever, passing out, or feeling dizzy. - HEENT: Denies hearing problems. - Denies eye problems besides needing glasses. - Reports intermittent dysphagia for the last year. - Cardiovascular: Denies chest pain, heaviness, or discomfort. - Reports heartburn weekly. - Respiratory: Denies waking up short of breath or shortness of breath on exertion. - She uses her albuterol inhaler infrequently, sometimes a few times a week and other times not for a month. - Gastrointestinal: Reports no problems with bowel movements. - Denies nausea or vomiting. - Genitourinary: Denies problems with urination and reports waking up once per night to urinate. Physical Exam General: Cooperative, healthy appearing, comfortable, no acute distress and well developed Orientation: Patient oriented x3 Limitations: No limitations Head: Normal to inspection Ears: Hearing grossly normal bilaterally Nose: Normal external nose present Face and sinus: Normal facial exam Eyes: Appearance normal, both eyes and all related structures Neck: Normal visual inspection and Yes full ROM Respiratory: Normal respiratory effort and able to speak in complete sentences. Clear to auscultation bilaterally Cardiovascular: Regular rate and rhythm. Normal S1 and S2 GI: Normal to inspection. Soft to palpation and nontender Skin: No rashes or lesions noted Neuro: Patient oriented x3 Extremities: Normal to inspection Results - Colonoscopy: Last performed in November 2019. - Mammogram: Current and up to date until July 2024. Plan Patient was informed and verbally consented to the use of an ambient scribe for clinic note documentation during this visit. 1. Asthma The patient's asthma is well-controlled with Breo and Singulair. She uses her albuterol inhaler infrequently. Advised to continue rinsing her mouth after using Breo. A refill for the albuterol inhaler will be sent to the pharmacy. 2. Gastroesophageal Reflux Disease (Gerd) With Heartburn The patient reports weekly heartburn. Discussed dietary triggers such as fried foods, spicy foods, tomato products, juices, soda, and coffee, and advised avoiding them at nighttime. Recommended lifestyle modifications, including waiting four hours after the last meal before lying down and elevating the head of the bed. A one-month supply of medication will be prescribed to see if it alleviates symptoms. 3. Dysphagia The patient has been experiencing intermittent difficulty with swallowing for about the last year. A swallowing study has been ordered to investigate the cause. The gastroenterology referral for her colonoscopy may also include an evaluation of her dysphagia. Discussion Notes I reviewed the patient's health maintenance status and noted she is due for a colonoscopy, for which I am placing a referral. I have also ordered fasting blood work, which is due. We discussed her weekly heartburn, and I provided education on dietary and lifestyle modifications to manage symptoms, explaining that chronic acid exposure can damage the esophagus. I will prescribe a one-month trial of medication for this. I am ordering a swallowing study to investigate her intermittent dysphagia. Regarding her social habits, I counseled her on the risks associated with smoking marijuana, including bladder cancer, heart attacks, and strokes, and recommended edibles as a safer alternative. We also discussed the shingles vaccine, which I recommend due to its effectiveness, and I advised her that she can receive it regardless of her lack of a history of chickenpox. Her asthma is well-controlled, and I will send a refill for her albuterol inhaler. We will follow up on the results of the blood work and imaging. Patient Instructions - Please go to the lab to have your fasting blood work drawn. - A referral has been sent for your colonoscopy, and the specialist's office will contact you to schedule it. - We have ordered a swallowing study for you, and the imaging center will call you to schedule an appointment. - For your heartburn, try to avoid fried foods, spicy foods, tomato products, juices, soda, and coffee, especially at night. - Do not eat for about four hours before you lie down to go to sleep. - Try raising the head of your bed with pillows to help prevent acid reflux at night. - I have prescribed a one-month supply of medication for your heartburn; please see how you do on it. - A refill for your albuterol inhaler has been sent to your pharmacy. - We will follow up with you regarding your test results. - Please contact us if you have any new or worsening symptoms. Orders: Orders Free T4 (Free Thyroxine) Today K21.9 - Gastro-esophageal reflux disease without esophagitis Thyroid Stimulating Hormone Today K21.9 - Gastro-esophageal reflux disease without esophagitis Lipid Panel Today E78.00 - Pure hypercholesterolemia, unspecified, K21.9 - Gastro-esophageal reflux disease without esophagitis Vitamin D 25-OH Total Today K21.9 - Gastro-esophageal reflux disease without esophagitis Magnesium Today K21.9 - Gastro-esophageal reflux disease without esophagitis FL barium swallow Today R13.10 - Dysphagia, unspecified FL upper GI series Today R13.10 - Dysphagia, unspecified Complete Blood Count Auto Diff Today K21.9 - Gastro-esophageal reflux disease without esophagitis Comprehensive Met. Panel Today K21.9 - Gastro-esophageal reflux disease without esophagitis Vitamin B12 and Folate Today K21.9 - Gastro-esophageal reflux disease without esophagitis Referrals Gastroenterology Referral Z12.11 - Encounter for screening for malignant neoplasm of colon Medications: New omeprazole 20 mg PO DAILY 30 caps 0RF K21.9 - Gastro-esophageal reflux disease without esophagitis Refilled albuterol sulfate 90 mcg/actuation 2 puffs PO Q4-6H PRN 8.5 grams 0RF bronchospasm J45.20 - Mild intermittent asthma, uncomplicated
--- OUTSIDE RECORDS SUMMARY | 2025-01-22 09:41 | XMS_ITS ---
Author Name [facility] Organization Unknown Care Team Organization Name Specialty Phone Email Start Date End [facility] ([facility])
--- OUTSIDE RECORDS SUMMARY | 2025-01-22 09:41 | XMS_ITS | Clinical Summary ---
Author Organization [facility] Address [address] [address] Phone Care Team Providers Care Orchard Worker Name Role Phone Fadi Barcenas MD Primary Care Provider [phone] Allergies Active Allergy Reactions Criticality Noted Date Comments Wasp Venom Hives 03/23/2024 Medications BREO ELLIPTA 200-25 mcg/dose inhaler 01/10/2024 Active montelukast (SINGULAIR) 10 mg tablet 03/03/2024 Active loratadine 10 mg Cap Active albuterol 90 mcg/actuation inhaler Inhale 2 puffs into the lungs every 6 (six) hours as needed for wheezing. Active azelastine (ASTELIN) 137 mcg (0.1 %) nasal spray 1 spray by Nasal route 2 (two) times a day. Use in each nostril as directed 30 mL 06/24/2024 Active Active Problems Problem Noted Date Diagnosed Date Viral sinusitis 06/24/2024 Asthma 02/16/2022 Immunizations No known immunizations Social History Tobacco Use Types Packs/Day Years Used Date Smoking Tobacco: Former Cigarettes Smokeless Tobacco: Never Tobacco Cessation:Counseling Given: Not Answered Education Answer Date Recorded Are you interested in more education? Not on kaylie e 03/23/2024 Are you concerned about learning? Not on file 03/23/2024 No 03/23/2024 No 03/23/2024 Digital Access Answer Date Recorded No 03/23/2024 No 03/23/2024 Reliable internet access at home? Not on file 03/23/2024 Device with a working camera? Not on file Comments Unknown Sex and Gender Information Value Date Recorded Sex Assigned at Not on file Legal Sex Female 12:59 PM EST Gender Identity Not on file Sexual Orientation Not on file Last Filed Vital Signs Vital Sign Reading Time Taken Comments Blood Pressure 132/77 06/24/2024 1:26 PM EDT Pulse 65 06/24/2024 1:26 PM EDT Temperature 37 C (98.6 F) 06/24/2024 1:26 PM EDT Respiratory Rate 16 06/24/2024 1:26 PM EDT Oxygen Saturation 99% 06/24/2024 1:26 PM EDT Inhaled Oxygen Concentration - - Weight - - Height - - Body Mass Index - - Plan of Treatment Health Maintenance Due Date Last Done Comments LIPID PANEL 1962 DEPRESSION SCREENING 1974 SMOKING Hx and SMOKELESS TOBACCO SCREENING 1975 HEPATITIS C SCREENING 1980 HIV ONE-TIME SCREENING (18-65 YEARS) 1980 PAP SMEAR 1983 MAMMOGRAM 2002 COLOGUARD 2007 COLONOSCOPY 2007 COLORECTAL CANCER SCREENING 2007 FIT TEST 2007 FOBT 2007 SIGMOIDOSCOPY 2007 VIRTUAL COLONOSCOPY 2007 RSV VACCINE (1 - Risk 50-74 years 1-dose series) 2012 ZOSTER VACCINES (1 of 2) 2012 PNEUMOCOCCAL VACCINES (50+ years) (2 of 2 - PCV) 01/26/2021 01/27/2020 INFLUENZA VACCINE (#1) 2024 , 02/01/2023, 12/18/2021, Additional history exists COVID-19 VACCINE ( season) 2024 12/23/2023, 12/18/2021, 02/14/2021, Additional history exists Adult Td,Tdap Booster 01/23/2029 01/23/2019 HEPATITIS A VACCINES Aged Out No long er eligible based on patient's age to complete this topic HIB VACCINES Aged Out No longer eligi ble based on patient's age to complete this topic MENINGOCOCCAL VACCINES (ACWY) Aged Out No longer eligible based on patient's age to complete this topic MENINGOCOCCAL VACCINES (B) Aged Out N o longer eligible based on patient's age to complete this topic Medical Devices Not on file Insurance [employer] CHO[employer] PLUS Member Subscriber Plan / Payer (Ef fective 2022-) Name:MichelLynda Relation to Subscriber:Self Name:Lynda Pearson Payer ID:[id number] ([employer]) Type:PPO Address: [address] [facility] CHOICE PLUS Member Subscriber Plan / Payer (Ef fective 2022-) Name:Lynda Pearson Relation to Subscriber:Self Name:MichelLynda Payer ID:[id number] ([facility]) Type:PPO Address: [address] Member Subscriber Plan / Payer (Ef fective 2022-) Name:Lynda Pearson Relation to Subscriber:Self Name:Lynda Pearson Payer ID:[id number] ([employer]) Type:PPO Address: [place] [id number] [employer] CHOICE PLUS [facility] [employer] CHOICE PLUS [facility] [employer] CHOICE PLUS [facility] CHOICE PLUS [facility] Care Teams Orchard Worker Relationship Specialty Start Date End Date Fadi Barcenas MD [address] [place] [address] PCP - General Internal Medicine 03/23/24 Additional Source Comments The information contained in this document represents components of the legal health record. It is not the complete legal health record.[facility]
--- OUTSIDE RECORDS SUMMARY | 2025-01-22 09:41 | XMS_ITS | Data Portability ---
Author Organization [facility], [address] Address [address] [place] [address] Assessment No assessment recorded. Plan of Treatment Reminders Order Date Submit Date Provider Last Modified By Organization Details Last Modified Time Details Appointments None recorded. Lab rapid flu (A+B) 2021 [place] [address], [address] [place] [address], [id number], 13:28:11 rapid SARS CoV 2 Ag, QL [place], respiratory specimen 2021 [place] [address] _[facility], [address] [place] [address], [phone], 13:28:11 Referral None recorded. Procedures None recorded. Surgeries None recorded. Imaging None recorded. Medication Orders None recorded. Patient TargetsNo targets recorded. Patient Instructions Encounter Date Encounter Id Patient Instructions Last Modified By Organization Details Last Modified Time 02/16/2022 [id number] coronavirus (covid-19): care instructions [email or web address] Not available [...] men Unknown Analyte positi ve Not Available [address] [address] [facility] [place], [address], 02/16/2022 12:49:49 02/17/20 22 02/16/2022 rapid flu (A+B) Unknown Analyte negati ve Not Available [address] [address] [facility] [place], [address], 02/16/2022 12:49:38 02/17/20 22 02/16/2022 rapid flu (A+B) Unknown Analyte negati ve Not Available [address] [address] [facility] [place], [address], 02/16/2022 12:49:38 Result Notes None recorded. Problems Name Problem SNOMED Code Status Onset Date Resolution Date Notes Provider Name and Address Organization Details Recorded Time Asthma 919641953 Active 022 MUL[facility]GETA crow [facility] - [facility] [...] in Arterial blood by Pulse oximetry Systolic And Diastolic Provider Name and Address Organization Details Last Updated DateTime 162.56 cm 30.9 kg/m2 70934.6 3 g 97.6 [degF] 18 /min 72 /min 99 % 99 % 147/84 mm[Hg] MULUGETA Wang PA - [facility] [...] Diagnosis SNOMED-CT Code Diagnosis ICD10 Code Diagnosis IMO Codes Diagnosis Note [id number] [facility] [address] [place] [address] 05/03/2018 11:06:40 05/03/2018 11:40:28 [id number] [facility] [address] [place] [address] 01/14/2019 08:35:50 01/14/2019 08:53:53 [id number] [address] [facility] [address] [place] [address] 08/14/2015 10:17:02 08/14/2015 10:53:26 [id number] SARA RICE [address] [address] 02/16/2022 12:22:09 02/16/2022 13:36:20 COVID-19 313413488 U07.1 Acute uppe r respiratory infection 38334908 J06.9 Health Concerns Section Related Observation LastModified by Organization Detai ls LastModified Time None Recorded Concern Status LastModified by Organization Details LastModified Time None Recorded Advance Directives Directive None Recorded Payers Insurance Date Sequence Insurance Name Policy Number Policy Haile Covered Member ID Haile Member ID Guarantor Name 02/16/2022 1 [employer] [id number] Lynda Pearson [id number] Lynda Pearson 02/16/2022 1 [facility] [id number] Lynda Pearson [id number] Lynda Pearson Notes Date Note Type Note Provider Name and Address Organization Details Recorded Time 02/16/2022 text/html CongestionReport ed by PatientPaula is a 61 yo F with PMH asthma here for evaluation of congestion, sore throat, cough and low grade fevers onset 5 days. No SOB, CP, wheezing. Notes she was exposed to sick persons on gi but none of them have tested. Asking for flu/covid testing here today. SARA CAMPBELL JD [address] [place], [address], [place] - [facility] 02/16/2022 13:34:36 OBGyn Episode No OBEpisode recorded.
== END 2025-01-22 09:29 | disposition home or self-care (01) ==
LOC: HO.HMCH 08:53
PROVIDERS: PCP Internal Medicine; Visit Provider Internal Medicine
DX: Z00.00 Encounter for general adult medical examination without abnormal findings (principal); J45.20 Mild intermittent asthma, uncomplicated; E66.9 Obesity, unspecified; Z68.30 Body mass index [BMI] 30.0-30.9, adult; K21.9 Gastro-esophageal reflux disease without esophagitis; E55.9 Vitamin D deficiency, unspecified; Z12.11 Encounter for screening for malignant neoplasm of colon; R13.10 Dysphagia, unspecified

== ENCOUNTER → 2025-01-22 08:52 | Outpatient (BNVA) | payer OTHER, SELFPAY | PROVIDERS: PCP Internal Medicine; Visit Provider Internal Medicine | DX: Z00.00 Encounter for general adult medical examination without abnormal findings (principal); K21.9 Gastro-esophageal reflux disease without esophagitis; J45.20 Mild intermittent asthma, uncomplicated; E66.9 Obesity, unspecified; E55.9 Vitamin D deficiency, unspecified; R13.10 Dysphagia, unspecified; E78.00 Pure hypercholesterolemia, unspecified; Z68.30 Body mass index [BMI] 30.0-30.9, adult | CPT/HCPCS: 96127 ==

== ENCOUNTER 2025-02-09 09:00 | Outpatient (REF) | payer OTHER, SELFPAY ==
--- OUTSIDE RECORDS SUMMARY | 2025-02-09 09:38 | XMS_ITS | Clinical Summary ---
Author Organization [facility] Address [address] [address] Phone Care Team Providers Care Window Cutter Name Role Phone Fadi Barcenas MD Primary Care Provider [phone] Allergies Active Allergy Reactions Criticality Noted Date [...] topic Medical Devices Not on file Insurance [employer] CHOICE PLUS Member Subscriber Plan / Payer (Ef fective 2022-) Name:MichelLynda Relation to Subscriber:Self Name:Lynda Pearson Payer ID:[id number] ([employer]) Type:PPO Address: [address] [facility] CHOICE PLUS Member Subscriber Plan / Payer (Ef fective 2022-) Name:Lynda Pearson Relation to Subscriber:Self Name:MichelLynda Payer ID:[id number] ([facility]) Type:PPO Address: [address] Member Subscriber Plan / Payer (Ef fective 2022-) Name:Lynda Pearson Relation to Subscriber:Self Name:Lynda Pearson Payer ID:[id number] ([employer]) Type:PPO Address: [place] [phone] [employer] CHOICE PLUS [facility] [employer] CHOICE PLUS [facility] [employer] CHOICE PLUS [facility] CHOICE PLUS [facility] Care Teams Window Cutter Relationship Specialty Start Date End Date Fadi Barcenas MD [address] [place] [address] PCP - General Internal Medicine 03/23/24 Additional Source Comments The information contained in this document represents components of the legal health record. It is not the complete legal health record.[facility]
== END 2025-02-09 09:01 | disposition home or self-care (01) ==
LOC: HO.SH 09:00
PROVIDERS: Visit Provider Internal Medicine
DX: H90.3 Sensorineural hearing loss, bilateral (principal)
CPT/HCPCS: 92557; 92567